=== PATIENT | male | born 1965 | race Two or more races ===

== ENCOUNTER → 2018-11-17 | Outpatient (CLI) | payer OTHER ==
--- NOTE | 2018-11-17 11:18 | US ---
EXAMINATION TYPE: US abdomen complete DATE OF EXAM: 11/17/2018 COMPARISON: NONE CLINICAL HISTORY: R94.5 Abnormal Liver results E66.01 Morbid obesity per order; HT 5'1", WT 183lbs. EXAM MEASUREMENTS: Liver Length: 16.3 cm Gallbladder Wall: 0.1 cm CBD: 0.7 cm Spleen: 10.4 cm Right Kidney: 9.1 x 5.6 x 4.9 cm Left Kidney: 11.1 x 6.5 x 6.9 cm Pancreas: hyperechoic and limitedly seen due to overlying bowel gas Liver: fatty liver as is hyperechoic to right renal cortex, is attenuated posteriorly and vessels wi thin liver are poorly seen Gallbladder: wnl Evidence for sonographic Dow's sign: no CBD: abnormal as greater than 0.6cm Spleen: wnl Right Kidney: No hydronephrosis or masses seen Left Kidney: hyperechoic round, solid mass noted mid lower pole and size = 0.9 x 0.6 x 0.6cm, and ma y be lobular mass extension to renal sinus vs. other solid mass (angiomyolipoma vs. other) Upper IVC: wnl Abd Aorta: wnl IMPRESSION: 1. Solid left renal lesion. CT correlation recommended. 2. Hepatic steatosis versus diffuse hepatocellular disease.
== END | disposition home or self-care (01) ==
LOC: RADUSWWP 10:06
PROVIDERS: ATTEND Family Medicine
DX: N28.9 Disorder of kidney and ureter, unspecified (principal); R94.5 Abnormal results of liver function studies; E66.01 Morbid (severe) obesity due to excess calories
CPT/HCPCS: 76700

== ENCOUNTER → 2018-12-14 | Outpatient (CLI) | payer OTHER ==
[2018-12-14 14:15] LABS: Blood Urea Nitrogen 17 mg/dL (9-20)
--- NOTE | 2018-12-14 15:39 | CT ---
EXAMINATION TYPE: CT abdomen pelvis w con DATE OF EXAM: 12/14/2018 COMPARISON: Ultrasound 11/17/2018 HISTORY: Abnormal ultrasound. CT DLP: 1482 mGycm CONTRAST: CT scan of the abdomen and pelvis is performed with Oral Contrast and with IV Contrast, patient injec fran with 100ml mL of Isovue 300. FINDINGS: LUNG BASES-: No visible nodule. No infiltrate. LIVER/GB: No calcified gallstones. There is diffuse fatty hepatic infiltration. No space occupying hepatic lesion. Biliary tree is of normal caliber. PANCREAS: No inflammation. No distinct mass. SPLEEN: No splenic enlargement. No lesion seen. ADRENALS: No nodule. No thickening. KIDNEYS/BLADDER: No hydronephrosis. No nephrolithiasis. No distinct renal mass. Urinary bladder g rossly unremarkable. BOWEL: Normal appendix. Normal bowel caliber. No inflammation. GENITAL ORGANS: No gross abnormality. LYMPH NODES: No greater than 1cm abdominal or pelvic lymph nodes are appreciated. AORTA: No significant abnormality. OSSEOUS STRUCTURES: No significant abnormality is seen. OTHER: No significant additional abnormality is seen. IMPRESSION: 1. Fatty liver. 2. No evidence for left hepatic lesion.
== END | disposition home or self-care (01) ==
LOC: RADCTMAIN 13:26
PROVIDERS: ATTEND Family Medicine
DX: K76.0 Fatty (change of) liver, not elsewhere classified (principal)
CPT/HCPCS: 82565; 84520; 74177; 36415; Q9967

== ENCOUNTER → 2019-06-19 | Outpatient (CLI) | payer OTHER ==
--- NOTE | 2019-06-19 09:26 | XR ---
EXAMINATION TYPE: XR Hip Complete LT DATE OF EXAM: 06/19/2019 CLINICAL HISTORY: Left hip pain for 3 weeks. TECHNIQUE: AP and frogleg views of the left hip are obtained. COMPARISON: CT abdomen and pelvis December 14, 2018. FINDINGS: There is no acute fracture/dislocation evident in the left hip. Ilqn-zz-ebtfzdhe axial gill nt space loss with subchondral cystic change and mild head neck collar spurring is redemonstrated. T he overlying soft tissue appears unremarkable. IMPRESSION: As above .
== END | disposition home or self-care (01) ==
LOC: RADXRYALE 08:51
PROVIDERS: ATTEND Physician Assistant Medical
DX: M25.852 Other specified joint disorders, left hip (principal); M79.89 Other specified soft tissue disorders
CPT/HCPCS: 73502

== ENCOUNTER 2019-08-26 10:52 | Emergency (ER) | payer OTHER ==
[2019-08-26 11:09] VITALS: BP 110/71; PULSE 91; RESP 16; TEMP 98.4
--- NOTE | 2019-08-26 11:50 | ED ---
Lower Extremity Injury HPI - General Chief Complaint: Extremity Injury, Lower Stated Complaint: Toe Injury Time Seen by Provider: 08/26/19 11:23 Source: family, RN notes reviewed Mode of arrival: ambulatory Limitations: no limitations - History of Present Illness Initial Comments: 54-year-old male presents emergency Department with chief complaint injury to left foot pain. Patient states that he hadn't injury on Tuesday in which he states he slipped on some ice on his deck and injured his first toe on the left foot. Patient states that he was fine Tuesday but worsened Tuesday until today. He states there is swelling and pain despite went to the first digit. He states it's red. He has no history gout denies any other injuries at this time. - Related Data Home Medications Medication Instructions Recorded Confirmed Lisinopril [Zestril] 1 tab PO DAILY 08/27/16 08/27/16 Lovastatin [Mevacor] 1 tab PO HS 08/27/16 08/27/16 [place]-3 Fatty Acids/Fish Oil [Fish 2 tab PO DAILY 08/27/16 08/27/16 Oil 1,000 mg Softgel] metFORMIN HCL [Glucophage] 2 tab PO BID 08/27/16 08/27/16 Previous Rx's Medication Instructions Recorded Indomethacin [Indocin] 50 mg PO TID #30 capsule 08/26/19 Allergies Allergy/AdvReac Type Severity Reaction Status Date / Time atorvastatin AdvReac Abdominal Verified 08/26/19 11:09 Pain Review of Systems ROS Statement: Those systems with pertinent positive or pertinent negative responses have been documented in the HPI. ROS Other: All systems not noted in ROS Statement are negative. Past Medical History Past Medical History: Diabetes Mellitus, Hyperlipidemia, Hypertension Additional Past Medical History / Comment(s): VIT D DEFICENCY History of Any Multi-Drug Resistant Organisms: None Reported Past Anesthesia/Blood Transfusion Reactions: No Reported Reaction Past Psychological History: No Psychological Hx Reported Smoking Status: Light tobacco smoker Past Alcohol Use History: Occasional Past Drug Use History: None Reported General Exam Limitations: no limitations General appearance: alert, in no apparent distress Head exam: Present: atraumatic, normocephalic, normal inspection Eye exam: Present: normal appearance, PERRL, EOMI. Absent: scleral icterus, conjunctival injection, periorbital swelling Respiratory exam: Present: normal lung sounds bilaterally. Absent: respiratory distress, wheezes, rales, rhonchi, stridor Cardiovascular Exam: Present: regular rate, normal rhythm, normal heart sounds. Absent: systolic murmur, diastolic murmur, rubs, gallop, clicks Extremities exam: Present: other (Left foot there is swelling, erythema and tenderness to the first MTP region there is no obvious deformity neurovascular intact there is pain with range of motion and light touch. Ankle full range of motion nontender) Neurological exam: Present: alert, oriented X3 Skin exam: Present: warm, dry, intact, normal color. Absent: rash Course Vital Signs 08/26/19 11:08 Temperature 98.4 F Pulse Rate 91 Respiratory 16 Rate Blood Pressure 110/71 O2 Sat by Pulse 97 Oximetry Medical Decision Making - Medical Decision Making X-rays negative for acute fracture. Patient does have some arthritic changes. Patient symptoms are also consistent with gout. Patient to clindamycin and start Tegretol according return parameters were discussed. Disposition Clinical Impression: Gout, Contusion of left foot Disposition: HOME SELF-CARE Condition: Stable Instructions (If sedation given, give patient instructions): Gout (ED) Additional Instructions: Please return to the Emergency Department if symptoms worsen or any other concerns. Prescriptions: Indomethacin [Indocin] 50 mg PO TID #30 capsule Is patient prescribed a controlled substance at d/c from ED?: No Referrals: Yoshi Boswell DO [Primary Care Provider] - 1-2 days Time of Disposition: 12:07
--- NOTE | 2019-08-26 11:52 | XR ---
EXAMINATION TYPE: XR foot complete LT , 3 VIEWS DATE OF EXAM ORDERED: 08/26/2019 HISTORY: pain 1st digit. COMPARISON: None. FINDINGS: There is minimal degenerative change in the left first MTP joint. No fracture or dislocati on is seen. Note is made of a small Achilles spur seen arising from the calcaneus. IMPRESSION: 1. NO ACUTE OSSEOUS LESION. 2. MILD DEGENERATIVE CHANGE, LEFT FIRST MTP JOINT. 3. SMALL ACHILLES SPUR.
[2019-08-26] MEDS ORDERED: ACET/COD 300 MG/30 MG STARTER PACK 6 TAB BTL PO STA (12:07)
== END 2019-08-26 12:39 | disposition home or self-care (01) ==
LOC: EC 10:52
DX: S90.32XA Contusion of left foot, initial encounter (principal); M10.9 Gout, unspecified; M19.072 Primary osteoarthritis, left ankle and foot; E11.9 Type 2 diabetes mellitus without complications; E78.5 Hyperlipidemia, unspecified; I10 Essential (primary) hypertension; F17.200 Nicotine dependence, unspecified, uncomplicated; Z88.8 Allergy status to other drugs, medicaments and biological substances; Z79.84 Long term (current) use of oral hypoglycemic drugs; Z79.899 Other long term (current) drug therapy; W00.0XXA Fall on same level due to ice and snow, initial encounter
CPT/HCPCS: 99283

== ENCOUNTER 2020-11-28 07:29 | Day surgery (SDC) | payer OTHER ==
[2020-11-26 17:46] VITALS: BMI 37.2
[~2020-11-28 07:29] MED LIST: LACTATED RINGERS 1,000 ML IV SCH
[2020-11-28 08:03] VITALS: RESP 16; TEMP 97.3
[2020-11-28 08:04] LABS: Glucose,Whole Blood 161 mg/dL (75-99)
[2020-11-28] MEDS ORDERED: LIDOCAINE 1% (10MG/ML) FOR IV START INTRADERMA ONE (08:04)
[2020-11-28] MEDS ORDERED: PROPOFOL 10 MG/ML 20 ML VIAL IV ONE (08:30)
[2020-11-28] MEDS ORDERED: LIDOCAINE 1% INJ 10MG/ML (20 ML MDV) ONE (08:30)
--- NOTE | 2020-11-28 08:48 | P.PCN ---
Date of Procedure: 11/28/20 Procedure(s) Performed: BRIEF HISTORY: Patient is a 51-year-old pleasant male scheduled for an elective colonoscopy as a part of evaluation of prior history of colon polyps. Last colonoscopy was 5 years ago. PROCEDURE PERFORMED: Colonoscopy with biopsy. PREOPERATIVE DIAGNOSIS: History of colon polyps. IV sedation per Anesthesia. PROCEDURE: After informed consent was obtained, the patient, was brought into the endoscopy unit. IV sedation was administered by Anesthesia under continuous monitoring. Digital rectal examination was normal. Initially the Olympus CF-160 flexible video colonoscope was then inserted in the rectum, gradually advanced into the cecum without any difficulty. Careful examination was performed as the scope was gradually being withdrawn. Ileocecal valve and the appendiceal orifice were visualized and appeared normal. Prep was excellent. Mucosa of the cecum, appeared normal. In the ascending colon there was a 5 mm sessile polyp removed by cold biopsy. Rest of the ascending colon, transverse colon, descending colon, sigmoid colon, and rectum appeared normal. In the distal rectum there was a 2 mm sessile polyp removed by cold biopsy. Retroflexion was performed in the rectum and no lesions were seen. The patient tolerated the procedure well. IMPRESSION: 5 mm ascending colon polyp status post removal by cold biopsy 2 mm rectal polyp status post cold biopsy Rest of the colon appeared normal RECOMMENDATIONS: Findings of this examination were discussed with the patient as well as his family. He was advised to follow with the biopsy. If the biopsy shows an adenoma he can have a repeat colonoscopy in 5 years.
[2020-11-28 09:15] VITALS: BP 97/65; PULSE 84
== END 2020-11-28 10:36 | disposition home or self-care (01) ==
LOC: ORWHC2ENDO 07:29
PROVIDERS: ATTEND Internal Medicine Gastroenterology
DX: D12.2 Benign neoplasm of ascending colon (principal); K62.1 Rectal polyp; E11.9 Type 2 diabetes mellitus without complications; I10 Essential (primary) hypertension; Z86.010 Personal history of colon polyps; E78.5 Hyperlipidemia, unspecified; F17.200 Nicotine dependence, unspecified, uncomplicated; Z79.899 Other long term (current) drug therapy; Z79.82 Long term (current) use of aspirin; Z79.84 Long term (current) use of oral hypoglycemic drugs; Z88.8 Allergy status to other drugs, medicaments and biological substances; Z79.1 Long term (current) use of non-steroidal anti-inflammatories (NSAID)
CPT/HCPCS: 88305; 45380; J2001; J2704

== ENCOUNTER 2021-01-28 16:03 | Inpatient (IN) | payer OTHER ==
[2021-01-28 16:38] LABS: Basophils % (A) 0 %; Eosinophils % (A) 0 %; HCT 37.3 % (39.0-53.0); HGB 13.1 gm/dL (13.0-17.5); Lymphocytes # (A) 0.5 k/uL (1.0-4.8); Lymphocytes % (A) 8 %; MCH 32.3 pg (25.0-35.0); MCHC 35.2 g/dL (31.0-37.0); MCV 91.7 fL (80.0-100.0); Mean Platelet Volume 8.3; Monocytes # (A) 0.3 k/uL (0-1.0); Monocytes % (A) 4 %; Neutrophils # (A) 5.8 k/uL (1.3-7.7); Neutrophils % (A) 87 %; Platelet Count 238 k/uL (150-450); RBC 4.06 m/uL (4.30-5.90); RDW 12.6 % (11.5-15.5); WBC 6.7 k/uL (3.8-10.6)
[2021-01-28 16:43] LABS: Albumin 3.9 g/dL (3.5-5.0); Calcium 8.6 mg/dL (8.4-10.2); Total Bilirubin 1.3 mg/dL (0.2-1.3)
[2021-01-28] MEDS ORDERED: ACETAMINOPHEN TAB 500 MG TAB PO STA (16:44)
[2021-01-28] MEDS ORDERED: PANTOPRAZOLE 40 MG/10 ML VIAL IVP STA (16:45)
[2021-01-28] MEDS ORDERED: ONDANSETRON 4 MG/2 ML VIAL IVP STA (16:45)
[2021-01-28] MEDS ORDERED: SODIUM CHLORIDE 0.9% 500 ML 500 ML IV STA (16:45)
[2021-01-28 16:49] LABS: INR 0.9 (<1.2); Prothrombin Time 9.9 sec (9.0-12.0)
[2021-01-28 17:00] LABS: Partial Thromboplastin Time 20.2 sec (22.0-30.0)
--- NOTE | 2021-01-28 17:34 | XR ---
EXAMINATION TYPE: XR chest 1V portable DATE OF EXAM: 01/28/2021 COMPARISON: NONE HISTORY: Shortness of breath and Covid positive. TECHNIQUE: Single frontal view of the chest is obtained. FINDINGS: There are bilateral diffuse patchy airspace opacities. No pleural effusion, or pneumothora x seen. The cardiac silhouette size is within normal limits. The osseous structures are intact. IMPRESSION: Bilateral infiltrates.
--- NOTE | 2021-01-28 18:16 | ED ---
General Adult HPI - General Source: EMS Mode of arrival: EMS Limitations: no limitations <Karina Viera - Last Filed: 01/29/21 18:19> <Radha Carreon - Last Filed: 01/30/21 11:59> - General Chief complaint: Nausea/Vomiting/Diarrhea Stated complaint: Covid+/SOB/Abd pain Time Seen by Provider: 01/28/21 16:25 - History of Present Illness Initial comments: Patient is a 55-year-old male with history of diabetes, presenting to the emergency department via EMS with complaints of nausea, vomiting and symptoms of acid reflux over the past 2 days. Patient states he had an appointment to see his doctor a few days ago concerning the acid reflex however his doctor's office wanted a Covid test first. That tested come back +2 days ago. Patient states over the last 2 days he has been short of breath, mild cough but increasing nausea and vomiting. He states he has some epigastric discomfort. When EMS arrived at his home he was 75% on room air, 3 L or O2 was administered and he quickly improved to 94%. She did receive some fluids, Zofran and the EMS prior to arrival. Patient states she has not been checking his glucose levels secondary to not eating very much. He does admit to trying to drink some water. He denies history of asthma or COPD, he is an occasional smoker. He denies having any fevers or chills, no chest pains. He has no further complaints at this time. Upon arrival to the ER, he is febrile to 100.6, 80% on room air, improved to 95% on 3 L. (Karina Viera) - Related Data Home Medications Medication Instructions Recorded Confirmed Lovastatin [Mevacor] 40 mg PO DAILY 08/27/16 01/28/21 lisinopriL [Zestril] 5 mg PO DAILY 08/27/16 01/28/21 Pioglitazone [Actos] 45 mg PO DAILY 11/28/20 01/28/21 glipiZIDE [Glucotrol] 10 mg PO DAILY 11/28/20 01/28/21 metFORMIN HCL 1,000 mg PO BID 01/28/21 01/28/21 Allergies Allergy/AdvReac Type Severity Reaction Status Date / Time atorvastatin AdvReac Abdominal Verified 01/28/21 18:07 Pain/heartburn Review of Systems ROS Other: All systems not noted in ROS Statement are negative. <Karina Viera - Last Filed: 01/29/21 18:19> ROS Other: All systems not noted in ROS Statement are negative. <Radha Carreon - Last Filed: 01/30/21 11:59> ROS Statement: Those systems with pertinent positive or pertinent negative responses have been documented in the HPI. Past Medical History Past Medical History: Diabetes Mellitus, Hyperlipidemia, Hypertension Additional Past Medical History / Comment(s): hx of colon polyps, History of Any Multi-Drug Resistant Organisms: None Reported Additional Past Surgical History / Comment(s): colonoscopy, Past Anesthesia/Blood Transfusion Reactions: No Reported Reaction Past Psychological History: No Psychological Hx Reported Smoking Status: Never smoker Past Alcohol Use History: None Reported Past Drug Use History: Marijuana <Karina Viera - Last Filed: 01/29/21 18:19> General Exam Limitations: no limitations <Karina Viera - Last Filed: 01/29/21 18:19> - General Exam Comments Initial Comments: GENERAL: Patient is well-developed and well-nourished. Patient is nontoxic and in no acute distress. HEAD: Atraumatic, normocephalic. EYES: Pupils equal round and reactive to light, extraocular movements intact, sclera anicteric, conjunctiva are normal. Eyelids were unremarkable. ENT: TMs normal, nares patent, oropharynx clear without exudates. Moist mucous membranes. NECK: Normal range of motion, supple without lymphadenopathy or JVD. LUNGS: Unlabored respirations. Breath sounds clear to auscultation bilaterally and equal. No wheezes rales or rhonchi. HEART: Regular rate and rhythm without murmurs, rubs or gallops. ABDOMEN: Soft, mildly tender epigastric area, no other areas of abdominal pain nor moactive bowel sounds. No guarding, no rebound. No masses appreciated. : Deferred MUSCULOSKELETAL: Normal extremities with adequate strength and normal range of motion, no pitting or edema. No clubbing or cyanosis. NEUROLOGICAL: Patient is alert and oriented x 3. Motor and sensory are also intact. Cranial nerves II through XII grossly intact. Symmetrical smile. Normal speech, normal gait. PSYCH: Normal mood, normal affect. SKIN: Warm, Dry, normal turgor, no rashes or lesions noted. (Karina Viera) Course Vital Signs 01/28/21 01/28/21 01/28/21 16:09 16:23 17:06 Temperature 100.6 F H Pulse Rate 91 93 Pulse Rate [ Pulse Oximetery ] Respiratory 22 20 Rate Blood Pressure 120/69 114/70 Blood Pressure [Left Arm Supine] O2 Sat by Pulse 80 L 95 95 Oximetry 01/28/21 01/28/21 01/28/21 18:17 21:42 23:11 Temperature 98.9 F 97.0 F L Pulse Rate 87 60 Pulse Rate [ Pulse Oximetery ] Respiratory 18 18 Rate Blood Pressure 105/67 109/74 Blood Pressure [Left Arm Supine] O2 Sat by Pulse 94 L 95 96 Oximetry 01/29/21 02:00 Temperature 97.4 F L Pulse Rate Pulse Rate [ 65 Pulse Oximetery ] Respiratory 20 Rate Blood Pressure Blood Pressure 134/84 [Left Arm Supine] O2 Sat by Pulse 93 L Oximetry EKG Findings - EKG Comments: EKG Findings:: Normal sinus rhythm, normal ECG, no signs of acute ischemia. Ventricular rate 92, WV interval 156, QT 336. <Karina Viera - Last Filed: 01/29/21 18:19> Medical Decision Making - Lab Data Result diagrams: 01/29/21 05:25 01/28/21 19:17 <Karina Viera - Last Filed: 01/29/21 18:19> - Lab Data Result diagrams: 01/29/21 05:25 01/30/21 09:08 <Radha Carreon - Last Filed: 01/30/21 11:59> - Medical Decision Making Patient is a 55-year-old male with history of diabetes, presenting from the EMS secondary to nausea and vomiting as well as hypoxia. Tested positive for Covid 2 days ago. He was stating at 75% on room air, he has been stable on 3 L at 95%. He did arrive slightly febrile 100.9. EKG shows no acute process. Labs show a white count of 6.7, sodium is low at 130, glucose 338. He did not take his diabetes medication today. CRP is elevated at 260, LDH is 1700. Chest x- ray shows bilateral infiltrates. Patient will be admitted for covert pneumonia, hypoxia. Patient accepted by Dr. Valles with pulmonary on consult. Patient is in agreement with this plan of care. Case discussed with Dr. Carreon. (Karina Viera) I was available for consultation in the emergency department. The history and physical exam were done by the midlevel provider. I was consulted for this patients care. I reviewed the case with the midlevel provider and based on their presentation of the patient, I agree with the assessment, medical decision making and plan of care as documented. Chart was dictated using [employer]more dictation software. Attempts were made to correct any dictation errors however some typographical errors may persist. Patient was seen during a [facility] of emergency due to the Covid-19 pandemic. (Radha Carreon) - Lab Data Lab Results 01/28/21 01/28/21 01/28/21 Range/Units 16:22 16:22 16:22 WBC 6.7 (3.8-10.6) k/uL RBC 4.06 L (4.30-5.90) m/uL Hgb 13.1 (13.0-17.5) gm/dL Hct 37.3 L (39.0-53.0) % MCV 91.7 (80.0-100.0) fL MCH 32.3 (25.0-35.0) pg MCHC 35.2 (31.0-37.0) g/dL RDW 12.6 (11.5-15.5) % Plt Count 238 (150-450) k/uL MPV 8.3 Neutrophils % 87 % Lymphocytes % 8 % Monocytes % 4 % Eosinophils % 0 % Basophils % 0 % Neutrophils # 5.8 (1.3-7.7) k/uL Lymphocytes # 0.5 L (1.0-4.8) k/uL Monocytes # 0.3 (0-1.0) k/uL Eosinophils # 0.0 (0-0.7) k/uL Basophils # 0.0 (0-0.2) k/uL PT 9.9 (9.0-12.0) sec INR 0.9 (<1.2) APTT 20.2 L (22.0-30.0) sec D-Dimer (<0.60) mg/L FEU Sodium 130 L (137-145) mmol/L Potassium 5.0 (3.5-5.1) mmol/L Chloride 97 L (98-107) mmol/L Carbon Dioxide 20 L (22-30) mmol/L Anion Gap 13 mmol/L BUN 33 H (9-20) mg/dL Creatinine 1.11 (0.66-1.25) mg/dL Est GFR (CKD-EPI)AfAm 87 (>60 ml/min/1.73 sqM) Est GFR (CKD-EPI)NonAf 75 (>60 ml/min/1.73 sqM) Glucose 338 H (74-99) mg/dL Plasma Lactic Acid Rudy (0.7-2.0) mmol/L Calcium 8.6 (8.4-10.2) mg/dL Magnesium (1.6-2.3) mg/dL Total Bilirubin 1.3 (0.2-1.3) mg/dL AST 118 H (17-59) U/L ALT 66 H (4-49) U/L Alkaline Phosphatase 105 (38-126) U/L Lactate Dehydrogenase (313-618) U/L C-Reactive Protein (<10.0) mg/L Total Protein 7.0 (6.3-8.2) g/dL Albumin 3.9 (3.5-5.0) g/dL Lipase (23-300) U/L Blood Type Confirm 01/28/21 01/28/21 01/28/21 Range/Units 16:22 16:22 16:49 WBC (3.8-10.6) k/uL RBC (4.30-5.90) m/uL Hgb (13.0-17.5) gm/dL Hct (39.0-53.0) % MCV (80.0-100.0) fL MCH (25.0-35.0) pg MCHC (31.0-37.0) g/dL RDW (11.5-15.5) % Plt Count (150-450) k/uL MPV Neutrophils % % Lymphocytes % % Monocytes % % Eosinophils % % Basophils % % Neutrophils # (1.3-7.7) k/uL Lymphocytes # (1.0-4.8) k/uL Monocytes # (0-1.0) k/uL Eosinophils # (0-0.7) k/uL Basophils # (0-0.2) k/uL PT (9.0-12.0) sec INR (<1.2) APTT (22.0-30.0) sec D-Dimer 0.95 H (<0.60) mg/L FEU Sodium (137-145) mmol/L Potassium (3.5-5.1) mmol/L Chloride (98-107) mmol/L Carbon Dioxide (22-30) mmol/L Anion Gap mmol/L BUN (9-20) mg/dL Creatinine (0.66-1.25) mg/dL Est GFR (CKD-EPI)AfAm (>60 ml/min/1.73 sqM) Est GFR (CKD-EPI)NonAf (>60 ml/min/1.73 sqM) Glucose (74-99) mg/dL Plasma Lactic Acid Rudy 1.9 (0.7-2.0) mmol/L Calcium (8.4-10.2) mg/dL Magnesium (1.6-2.3) mg/dL Total Bilirubin (0.2-1.3) mg/dL AST (17-59) U/L ALT (4-49) U/L Alkaline Phosphatase (38-126) U/L Lactate Dehydrogenase (313-618) U/L C-Reactive Protein (<10.0) mg/L Total Protein (6.3-8.2) g/dL Albumin (3.5-5.0) g/dL Lipase (23-300) U/L Blood Type Confirm O Positive 01/28/21 Range/Units 16:49 WBC (3.8-10.6) k/uL RBC (4.30-5.90) m/uL Hgb (13.0-17.5) gm/dL Hct (39.0-53.0) % MCV (80.0-100.0) fL MCH (25.0-35.0) pg MCHC (31.0-37.0) g/dL RDW (11.5-15.5) % Plt Count (150-450) k/uL MPV Neutrophils % % Lymphocytes % % Monocytes % % Eosinophils % % Basophils % % Neutrophils # (1.3-7.7) k/uL Lymphocytes # (1.0-4.8) k/uL Monocytes # (0-1.0) k/uL Eosinophils # (0-0.7) k/uL Basophils # (0-0.2) k/uL PT (9.0-12.0) sec INR (<1.2) APTT (22.0-30.0) sec D-Dimer (<0.60) mg/L FEU Sodium (137-145) mmol/L Potassium (3.5-5.1) mmol/L Chloride (98-107) mmol/L Carbon Dioxide (22-30) mmol/L Anion Gap mmol/L BUN (9-20) mg/dL Creatinine (0.66-1.25) mg/dL Est GFR (CKD-EPI)AfAm (>60 ml/min/1.73 sqM) Est GFR (CKD-EPI)NonAf (>60 ml/min/1.73 sqM) Glucose (74-99) mg/dL Plasma Lactic Acid Rudy (0.7-2.0) mmol/L Calcium (8.4-10.2) mg/dL Magnesium 2.2 (1.6-2.3) mg/dL Total Bilirubin (0.2-1.3) mg/dL AST (17-59) U/L ALT (4-49) U/L Alkaline Phosphatase (38-126) U/L Lactate Dehydrogenase 1776 H (313-618) U/L C-Reactive Protein 260.1 H (<10.0) mg/L Total Protein (6.3-8.2) g/dL Albumin (3.5-5.0) g/dL Lipase 235 (23-300) U/L Blood Type Confirm Critical Care Time Critical Care Time: Yes Total Critical Care Time: 35 (Patient arrived stating at 74% on room air, 3 L O2 was quickly applied, satting a normal 94%. Covid pneumonia, patient was admitted.) <Karina Viera - Last Filed: 01/29/21 18:19> Disposition Decision Date: 01/28/21 Decision Time: 18:27 <Karina Viera - Last Filed: 01/29/21 18:19> <Radha Carreon - Last Filed: 01/30/21 11:59> Clinical Impression: Pneumonia due to COVID-19 virus, Hypoxia Disposition: ADMITTED IP TO THIS HOSP Condition: Stable
[2021-01-28] MEDS ORDERED: NALOXONE 0.4 MG/ML 1 ML VIAL IV PRN (18:24)
[2021-01-28] MEDS ORDERED: ONDANSETRON 4 MG/2 ML VIAL IVP PRN (18:24)
[2021-01-28] MEDS ORDERED: glipiZIDE 10 MG TAB PO SCH (18:30)
[2021-01-28 18:35] LABS: Magnesium 2.2 mg/dL (1.6-2.3)
[2021-01-28] MEDS ORDERED: ALPRAZolam 0.25 MG TAB PO PRN (18:42)
[2021-01-28 18:53] LABS: C Reactive Protein 260.1 mg/L (<10.0)
[2021-01-28] MEDS: SODIUM CHLORIDE 0.9% 1,000 ML IV SCH (19:06)
[2021-01-28] MEDS: DEXAMETHASONE SOD PHOSPHATE 10 MG/ML 1 ML VIAL IV SCH (19:06)
[2021-01-28 19:11] LABS: Glucose,Whole Blood 315 mg/dL (75-99)
[2021-01-28 20:04] LABS: Albumin 3.8 g/dL (3.5-5.0); Calcium 8.4 mg/dL (8.4-10.2); Potassium 5.2 mmol/L (3.5-5.1); Total Bilirubin 1.1 mg/dL (0.2-1.3); Total Protein 6.8 g/dL (6.3-8.2)
--- NOTE | 2021-01-28 20:27 | HP ---
HISTORY AND PHYSICAL DATE OF SERVICE: 01/28/2021 CHIEF COMPLAINTS: Shortness of breath, cough, nausea, vomiting, diarrhea. HISTORY OF PRESENT ILLNESS: This 55-year-old gentleman with a past medical history of diabetes, hypertension, hyperlipidemia, being followed by Dr. Yoshi Boswell in the outpatient setting, was not feeling well over the past 2 days. The patient had vomiting, nausea, acid reflux, and subsequently COVID test was done at the doctor's office. Because of increased symptoms, the patient came to [facility] and was admitted for further evaluation and treatment. The patient also had mild cough and shortness of breath nausea, vomiting. The pulse ox found to be 70% on room air and the patient had bilateral pneumonia. COVID-19 was positive and the patient was admitted for further evaluation and treatment. There is no history of any fever, rigor or chills. No history of headache, loss of consciousness, seizures. PAST MEDICAL HISTORY: Diabetes mellitus, hypertension, hyperlipidemia. HOME MEDICATIONS: Metformin, Zestril, Glucotrol, Actos, Mevacor. ALLERGIES: ATORVASTATIN. FAMILY HISTORY: No history of heart disease or strokes in the family. SOCIAL HISTORY: tobacco smoker. REVIEW OF SYSTEMS: ENT: No diminished hearing. No diminished vision. CARDIOVASCULAR SYSTEM: As mentioned earlier. RESPIRATORY SYSTEM: As mentioned earlier. GI: As mentioned earlier. : No dysuria or retention. NERVOUS SYSTEM: No numbness, weakness. ALLERGY/IMMUNOLOGY: No asthma, hayfever. MUSCULOSKELETAL: As mentioned earlier. HEMATOLOGY/ONCOLOGY: No history of anemia. ENDOCRINE: As mentioned earlier. CONSTITUTIONAL: As mentioned earlier. DERMATOLOGY: Negative. RHEUMATOLOGY: Negative. PSYCHIATRY: Negative. PHYSICAL EXAMINATION: Patient alert and oriented x3. Pulse is 87, blood pressure 150/69, respiration 18, temperature 98.9, pulse ox 94% on 3 L. It was 80% on room air on admission. HEENT: Conjunctivae normal. NECK: No jugular venous distention. CARDIOVASCULAR SYSTEM: S1, S2 muffled. RESPIRATORY SYSTEM: Breath sounds diminished at the bases. A few scattered rhonchi. ABDOMEN: Soft, obese, non-tender. LEGS: No edema. No swelling. NERVOUS SYSTEM: No focal deficit. LYMPHATICS: No lymph node palpable in neck, axillae or groin. SKIN: No ulcer, rash, bleeding. JOINTS: No active deforming arthropathy. LABS: WBC 6.7, hemoglobin 13.1. Sodium 131. Other labs are noted. ASSESSMENT: 1. Acute COVID-19 infection with COVID-19 bilateral interstitial pneumonia with acute hypoxic respiratory failure. 2. Hyponatremia. 3. Diarrhea, possibly secondary COVID-19. 4. Diabetes mellitus, type 2, uncontrolled with hyperglycemia. 5. Elevated AST and ALT. 6. History of hypertension. 7. History of hyperlipidemia. 8. History of colonic polyps. 9. Obesity with body mass index of 36.7. 10.FULL CODE. RECOMMENDATIONS AND DISCUSSION: In this 55-year-old gentleman who presented with multiple complex medical issues, we will monitor the patient closely, continue the current medications, continue symptomatic treatment. I recommend resuming the home medications. Monitor blood sugars closely. Initiate dexamethasone, Lovenox. I would also recommend a D-dimer, and if it is positive CT angio chest also to rule out the possibility of pulmonary embolism. Otherwise, if the sugars are persistently more than 350, IV insulin drip may be considered for better diabetic control. We will follow the patient closely. Prognosis is guarded. A copy of this dictation is being forwarded to Dr. Boswell, who is the primary physician. MMODL / JULIN: [id number] / MTDD
[2021-01-28] MEDS: CHOLECALCIFEROL 25 MCG (1000 IU) TABLET PO SCH (23:14)
[2021-01-28] MEDS: metFORMIN 500 MG TAB PO SCH (23:15)
[2021-01-28 23:23] LABS: Glucose,Whole Blood 335 mg/dL (75-99)
[2021-01-28] MEDS: INSULIN ASPART (NovoLOG) 100 UNIT/ML VIAL SQ SCH (23:34)
[2021-01-29] MEDS: ACETAMINOPHEN TAB 325 MG TAB PO PRN (02:45)
[2021-01-29 07:31] LABS: Glucose,Whole Blood 286 mg/dL (75-99)
[2021-01-29] MEDS: PIOGLITAZONE 45 MG TAB PO SCH (07:53)
[2021-01-29] MEDS: PANTOPRAZOLE 40 MG/10 ML VIAL IVP SCH (07:53)
[2021-01-29] MEDS: ENOXAPARIN 40 MG/0.4 ML SYRINGE SQ SCH (07:53)
[2021-01-29] MEDS: INSULIN ASPART (NovoLOG) 100 UNIT/ML VIAL SQ SCH ×4 (07:53→20:10)
[2021-01-29] MEDS: CHOLECALCIFEROL 25 MCG (1000 IU) TABLET PO SCH (07:54)
[2021-01-29] MEDS: ASCORBIC ACID 500 MG TAB PO SCH (07:54)
[2021-01-29] MEDS: DEXAMETHASONE SOD PHOSPHATE 10 MG/ML 1 ML VIAL IV SCH (07:54)
[2021-01-29] MEDS: metFORMIN 500 MG TAB PO SCH ×2 (07:54→20:10)
[2021-01-29] MEDS: glipiZIDE 10 MG TAB PO SCH ×2 (09:29→18:47)
[2021-01-29] MEDS: LINAGLIPTIN 5 MG TABLET PO SCH (09:29)
[2021-01-29] MEDS: SODIUM CHLORIDE 0.9% 1,000 ML IV SCH (09:29)
[2021-01-29 09:37] LABS: HCT 38.8 % (39.6-50.0); HGB 12.8 g/dL (13.0-17.0); MCH 31.4 pg (27.0-32.0); MCV 95.1 fL (80.0-97.0); Mean Platelet Volume 11.2 fL (9.5-12.2); Platelet Count 262 X 10*3/uL (140-440); RBC 4.08 X 10*6/uL (4.40-5.60); RDW 12.6 % (11.5-14.5); WBC 6.99 X 10*3/uL (4.50-10.00)
[2021-01-29 10:19] LABS: Basophils # (A) 0.01 X 10*3/uL (0.00-0.10); Basophils % (A) 0.1 %; Eosinophils # (A) 0 X 10*3/uL (0.04-0.35); Eosinophils % (A) 0 %; Lymphocytes # (A) 0.53 X 10*3/uL (0.90-5.00); Lymphocytes % (A) 7.6 %; Monocytes # (A) 0.22 X 10*3/uL (0.20-1.00); Monocytes % (A) 3.1 %; Neutrophils # (A) 6.19 X 10*3/uL (1.80-7.70); Neutrophils % (A) 88.6 %
--- NOTE | 2021-01-29 11:58 | P.CNPUL ---
History of Present Illness Consult date: 01/29/21 Requesting physician: Rika Valles Reason for consult: dyspnea, cough, hypoxemia, abnormal CXR/CT Chief complaint: Nausea, diarrhea, shortness of breath, cough, fever History of present illness: 55-year-old male patient with past medical history of diabetes mellitus, hypertension, hyperlipidemia, past history of smoking, which is currently in remission, presented to the emergency department on 01/28/2021 with complaints of worsening dyspnea, cough and fever. He started with symptoms of nausea, diarrhea, and acid reflux about 7 days ago. In the last couple of days he is more short of breath and coughing. Patient had a appointment with his PCP a few days ago concerning his acid reflux and had outpatient COVID test done, which came back +2 days ago. Patient presented to the emergency department for further evaluation and treatment for symptoms of worsening dyspnea, mild cough, and increasing nausea and vomiting and some epigastric discomfort. When EMS arrived at his home his pulse ox was 75% on room air, he was placed on supplemental oxygen. He received some fluids, Zofran prior to arrival. Denies any history of chronic lung disease. Chest x-ray in the emergency department shows bilateral infiltrates. Admission labs showed white blood cell count of 6.7, hemoglobin 13.1, lymphocyte count 0.5, d-dimer is 0.95, sodium is 1:30, potassium is 5.0, chloride is 97, CO2 is 20, BUN of 33, creatinine is 1.11, lactic acid was 1.9, AST is 118, ALT is 66, LDH was 1776, and CRP is 260. Lipase was 235. Patient was started on IV dexamethasone 6 program daily, prophylactic Lovenox 40 mg, continues on IV fluids, vitamins, and we will start Remdesivir and 1 unit of convalescent plasma today Review of Systems All systems: negative Constitutional: Reports malaise, Reports poor appetite, Reports weakness, Denies chills, Denies fever Eyes: denies blurred vision, denies pain Ears, nose, mouth and throat: Denies headache, Denies sore throat Cardiovascular: Denies chest pain, Denies shortness of breath Respiratory: Reports cough, Reports dyspnea Gastrointestinal: Reports dyspepsia, Reports heartburn, Reports indigestion, Reports nausea, Reports vomiting, Denies abdominal pain, Denies diarrhea Musculoskeletal: Denies myalgias Integumentary: Denies pruritus, Denies rash Neurological: Denies numbness, Denies weakness Psychiatric: Denies anxiety, Denies depression Endocrine: Denies fatigue, Denies weight change Past Medical History Past Medical History: Diabetes Mellitus, Hyperlipidemia, Hypertension Additional Past Medical History / Comment(s): hx of colon polyps, History of Any Multi-Drug Resistant Organisms: None Reported Additional Past Surgical History / Comment(s): colonoscopy, Past Anesthesia/Blood Transfusion Reactions: No Reported Reaction Past Psychological History: No Psychological Hx Reported Smoking Status: Never smoker Past Alcohol Use History: None Reported Past Drug Use History: Marijuana Additional Drug Use History / Comment(s): cbd gummies, instructed to hold 24 hrs prior Medications and Allergies Home Medications Medication Instructions Recorded Confirmed Type Lovastatin [Mevacor] 40 mg PO DAILY 08/27/16 01/28/21 History lisinopriL [Zestril] 5 mg PO DAILY 08/27/16 01/28/21 History Pioglitazone [Actos] 45 mg PO DAILY 11/28/20 01/28/21 History glipiZIDE [Glucotrol] 10 mg PO DAILY 11/28/20 01/28/21 History metFORMIN HCL 1,000 mg PO BID 01/28/21 01/28/21 History Allergies Allergy/AdvReac Type Severity Reaction Status Date / Time atorvastatin AdvReac Abdominal Verified 01/28/21 18:07 Pain/heartburn Physical Exam Vitals: Vital Signs Temp Pulse Pulse Resp BP BP Pulse Ox 01/29/21 08:00 98.0 F 74 16 102/57 92 L 01/29/21 07:15 21 01/29/21 02:56 97.4 F L 65 20 134/84 93 L 01/29/21 02:00 97.4 F L 65 20 134/84 93 L 01/28/21 23:11 97.0 F L 60 18 109/74 96 01/28/21 21:42 95 01/28/21 18:17 98.9 F 87 18 105/67 94 L 01/28/21 17:06 93 20 114/70 95 01/28/21 16:23 95 01/28/21 16:09 100.6 F H 91 22 120/69 80 L Intake and Output 01/28/21 01/29/21 01/29/21 22:59 06:59 14:59 Intake Total 1140 Balance 1140 Intake: Intake, IV Titration 900 Amount Sodium Chloride 0.9% 1, 900 000 ml @ 75 mls/hr IV . [id number] [facility] Rx#:[id number] Oral 240 Other: # Voids 2 Weight 87.997 kg 87.997 kg GENERAL EXAM: Alert, very pleasant, 55-year-old male, on 3 L of oxygen and a pulse ox of 92% comfortable in no apparent distress. HEAD: Normocephalic/atraumatic. EYES: Normal reaction of pupils, equal size. Conjunctiva pink, sclera white. NOSE: Clear with pink turbinates. THROAT: No erythema or exudates. NECK: No masses, no JVD, no thyroid enlargement, no adenopathy. CHEST: No chest wall deformity. Symmetrical expansion. LUNGS: Equal air entry with diffuse crackles CVS: Regular rate and rhythm, normal S1 and S2, no gallops, no murmurs, no rubs ABDOMEN: Soft, nontender. No hepatosplenomegaly, normal bowel sounds, no guarding or rigidity. EXTREMITIES: No clubbing, no edema, no cyanosis, 2+ pulses and upper and lower extremities. MUSCULOSKELETAL: Muscle strength and tone normal. SPINE: No scoliosis or deformity SKIN: No rashes CENTRAL NERVOUS SYSTEM: Alert and oriented -3. No focal deficits, tone is normal in all 4 extremities. PSYCHIATRIC: Alert and oriented -3. Appropriate affect. Intact judgment and i nsight. Results - Laboratory Findings CBC and BMP: 01/29/21 05:25 01/28/21 19:17 PT/INR, D-dimer PT 9.9 sec (9.0-12.0) 01/28/21 16:22 INR 0.9 (<1.2) 01/28/21 16:22 D-Dimer 0.95 mg/L FEU (<0.60) H 01/28/21 16:49 Abnormal lab findings: Abnormal Labs 01/28/21 01/28/21 01/28/21 16:22 16:22 16:22 RBC 4.06 L Hgb Hct 37.3 L Lymphocytes # 0.5 L Eosinophils # APTT 20.2 L D-Dimer Sodium 130 L Potassium Chloride 97 L Carbon Dioxide 20 L BUN 33 H Glucose 338 H POC Glucose (mg/dL) AST 118 H ALT 66 H Lactate Dehydrogenase C-Reactive Protein 01/28/21 01/28/21 01/28/21 16:49 16:49 19:08 RBC Hgb Hct Lymphocytes # Eosinophils # APTT D-Dimer 0.95 H Sodium Potassium Chloride Carbon Dioxide BUN Glucose POC Glucose (mg/dL) 315 H AST ALT Lactate Dehydrogenase 1776 H C-Reactive Protein 260.1 H 01/28/21 01/28/21 01/29/21 19:17 23:21 05:25 RBC 4.08 L Hgb 12.8 L Hct 38.8 L Lymphocytes # 0.53 L Eosinophils # 0 L APTT D-Dimer Sodium 131 L Potassium 5.2 H Chloride Carbon Dioxide 19 L BUN 34 H Glucose 301 H POC Glucose (mg/dL) 335 H AST 121 H ALT 73 H Lactate Dehydrogenase C-Reactive Protein 01/29/21 07:29 RBC Hgb Hct Lymphocytes # Eosinophils # APTT D-Dimer Sodium Potassium Chloride Carbon Dioxide BUN Glucose POC Glucose (mg/dL) 286 H AST ALT Lactate Dehydrogenase C-Reactive Protein - Diagnostic Findings Chest x-ray: report reviewed, image reviewed Additional studies: EKG reviewed Assessment and Plan Plan: Assessment: #1. Acute hypoxic respiratory failure related to acute COVID 19 pneumonia, with onset of symptoms 7 days prior to the presentation to the hospital, positive COVID test results on 01/27/2021, patient will be started on Remdesivir treatment on 01/29/2021 and will be given convalescent plasma depending on availability #2. Nausea, vomiting, gastric reflux, dehydration, fever, shortness of breath related to the above #3. Former smoker #4. Diabetes mellitus type 2 #5. Hypertension #6. Hyperlipidemia #7. Hyponatremia related to hypovolemia and dehydration #8. Increased inflammatory markers related to acute COVID 19 infection Plan: Continue Decadron, we'll start Remdesivir treatment today, 1 unit of convalescent plasma if unavailable, continue vitamins, prophylactic Lovenox, continue to follow his clinical course make recommendations accordingly, I performed a history & physical examination of the patient and discussed their management with my nurse practitioner, Mayra Lam. I reviewed the nurse practitioner's note and agree with the documented findings and plan of care. Lung sounds are positive for diminished breath sounds. The findings and the impression was discussed with the patient. I attest to the documentation by the nurse practitioner. Time with Patient: Greater than 30
[2021-01-29] MEDS ORDERED: REMDESIVIR 200 MG in SODIUM CHLORIDE 0.9% 250 ML IVPB ONE (12:00)
[2021-01-29 12:12] LABS: Glucose,Whole Blood 318 mg/dL (75-99)
[2021-01-29 17:03] LABS: Glucose,Whole Blood 294 mg/dL (75-99)
[2021-01-29 19:57] LABS: Glucose,Whole Blood 353 mg/dL (75-99)
--- NOTE | 2021-01-29 23:01 | P.PN ---
Subjective This is a pleasant 55 years old male with past medical history of diabetes mellitus, hypertension, hyperlipidemia. Presents with respiratory symptoms of dyspnea and cough and yellowish phlegm with some nausea and GI symptoms. Patient was tested positive for coronary virus, Labs showing a slightly elevated d-dimer at 0.95, increased LDH at 1776, P C- reactive protein at 260, sodium 131, glucose more than 300, liver enzymes mildly elevated. Also patient had low-grade fever yesterday at 200. Oxygen requirement in 3-4 L/m via nasal cannula also patient is tachypneic with breathing rate at 22/m. Patient is been evaluated by pulmonary team. His currently on vitamin C, vitamin D and sink. On normal saline at 75 mL/h, dexamethasone, IV 6 mg daily. Also he was started on remdesivir today. Review of systems CONSTITUTIONAL: No fever, no malaise, no fatigue. HEENT: No recent visual problems or hearing problems. Denied any sore throat. CARDIOVASCULAR: No orthopnea, PND, no palpitations, no syncope. PULMONARY: No chest wall tenderness, no hemoptysis. GASTROINTESTINAL: No diarrhea, no nausea, no vomiting, no abdominal pain. Normoactive bowel sounds. NEUROLOGICAL: No headaches, no weakness, no numbness. HEMATOLOGICAL: Denies any bleeding or petechiae. GENITOURINARY: Denies any burning micturition, frequency, or urgency. MUSCULOSKELETAL/RHEUMATOLOGICAL: Denies any joint pain, swelling, or any muscle pain. ENDOCRINE: Denies any polyuria or polydipsia. Active Medications Generic Name Dose Route Start Last Admin Trade Name Freq PRN Reason Stop Dose Admin Acetaminophen 650 mg 01/28/21 18:24 01/29/21 02:45 Acetaminophen Tab 325 Mg Tab PO 650 mg Q6HR PRN Administration Mild Pain or Fever > 100.5 Alprazolam 0.25 mg 01/28/21 18:42 Alprazolam 0.25 Mg Tab PO TID PRN Anxiety Ascorbic Acid 1,000 mg 01/29/21 09:00 01/29/21 07:54 Ascorbic Acid 500 Mg Tab PO 1,000 mg DAILY ROSE MARIE Administration Cholecalciferol 25 mcg 01/28/21 18:45 01/29/21 07:54 Cholecalciferol 25 Mcg (1000 Iu) Tablet PO 25 mcg DAILY ROSE MARIE Administration Dexamethasone Sodium Phosphate 6 mg 01/28/21 18:30 01/29/21 07:54 Dexamethasone Sod Phosphate 10 Mg/Ml 1 Ml Vial IV 6 mg DAILY ROSE MARIE Administration Enoxaparin Sodium 40 mg 01/29/21 09:00 01/29/21 07:53 Enoxaparin 40 Mg/0.4 Ml Syringe SQ 40 mg DAILY ROSE MARIE Administration Glipizide 10 mg 01/29/21 07:30 01/29/21 18:47 Glipizide 10 Mg Tab PO 10 mg AC-BID ROSE MARIE Administration Sodium Chloride 1,000 mls @ 75 mls/hr 01/28/21 18:30 01/29/21 09:29 Saline 0.9% IV 75 mls/hr .[id number] ROSE MARIE Administration Remdesivir 100 mg/ Sodium 250 mls @ 250 mls/hr 01/30/21 12:00 Chloride IVPB 02/02/21 12:59 DAILY@1200 ROSE MARIE Insulin Aspart 0 unit 01/28/21 21:00 01/29/21 20:10 Insulin Aspart (Novolog) 100 Unit/Ml Vial SQ 6 unit ACHS ROSE MARIE Administration Protocol Linagliptin 5 mg 01/29/21 09:00 01/29/21 09:29 Linagliptin 5 Mg Tablet PO 5 mg DAILY ROSE MARIE Administration Metformin HCl 1,000 mg 01/28/21 21:00 01/29/21 20:10 Metformin 500 Mg Tab PO 1,000 mg BID ROSE MARIE Administration Naloxone HCl 0.2 mg 01/28/21 18:24 Naloxone 0.4 Mg/Ml 1 Ml Vial IV Q2M PRN Opioid Reversal Ondansetron HCl 4 mg 01/28/21 18:24 01/29/21 02:45 Ondansetron 4 Mg/2 Ml Vial IVP 4 mg Q8HR PRN Administration Nausea And Vomiting Pantoprazole Sodium 40 mg 01/29/21 09:00 01/29/21 07:53 Pantoprazole 40 Mg/10 Ml Vial IVP 40 mg DAILY ROSE MARIE Administration Pioglitazone HCl 45 mg 01/29/21 09:00 01/29/21 07:53 Pioglitazone 45 Mg Tab PO 45 mg DAILY ROSE MARIE Administration Objective - Vital Signs Vital signs: Vital Signs Temp 97.8 F 01/29/21 13:15 Pulse 71 01/29/21 13:15 Resp 19 01/29/21 13:15 BP 92/53 01/29/21 13:15 Pulse Ox 90 L 01/29/21 13:15 Intake & Output 01/28/21 01/29/21 01/29/21 18:59 06:59 18:59 Intake Total 1140 Balance 1140 Weight 87.997 kg 87.997 kg Intake: Intake, IV Titration 900 Amount Sodium Chloride 0.9% 1, 900 000 ml @ 75 mls/hr IV . [id number] [facility] Rx#:[id number] Oral 240 Other: # Voids 2 - Exam GENERAL: The patient is alert and oriented x3, not in any acute distress. Well developed, well nourished. HEENT: Pupils are round and equally reacting to light. EOMI. No scleral icterus. No conjunctival pallor. Normocephalic, atraumatic. No pharyngeal erythema. No thyromegaly. CARDIOVASCULAR: S1 and S2 present. No murmurs, rubs, or gallops. PULMONARY: Chest is clear to auscultation, no wheezing or crackles. ABDOMEN: Soft, nontender, nondistended, normoactive bowel sounds. No palpable organomegaly. MUSCULOSKELETAL: No joint swelling or deformity. EXTREMITIES: No cyanosis, clubbing, or pedal edema. NEUROLOGICAL: Gross neurological examination did not reveal any focal deficits. SKIN: No rashes. no petechiae. - Labs CBC & Chem 7: 01/29/21 05:25 01/28/21 19:17 Labs: Abnormal Lab Results - Last 24 Hours (Table) 01/28/21 01/28/21 01/28/21 Range/Units 16:22 16:22 16:22 RBC 4.06 L (4.30-5.90) m/uL Hgb (13.0-17.0) g/dL Hct 37.3 L (39.0-53.0) % Lymphocytes # 0.5 L (1.0-4.8) k/uL Eosinophils # (0.04-0.35) X 10*3/uL APTT 20.2 L (22.0-30.0) sec D-Dimer (<0.60) mg/L FEU Sodium 130 L (137-145) mmol/L Potassium (3.5-5.1) mmol/L Chloride 97 L (98-107) mmol/L Carbon Dioxide 20 L (22-30) mmol/L BUN 33 H (9-20) mg/dL Glucose 338 H (74-99) mg/dL POC Glucose (mg/dL) (75-99) mg/dL AST 118 H (17-59) U/L ALT 66 H (4-49) U/L Lactate Dehydrogenase (313-618) U/L C-Reactive Protein (<10.0) mg/L 01/28/21 01/28/21 01/28/21 Range/Units 16:49 16:49 19:08 RBC (4.30-5.90) m/uL Hgb (13.0-17.0) g/dL Hct (39.0-53.0) % Lymphocytes # (1.0-4.8) k/uL Eosinophils # (0.04-0.35) X 10*3/uL APTT (22.0-30.0) sec D-Dimer 0.95 H (<0.60) mg/L FEU Sodium (137-145) mmol/L Potassium (3.5-5.1) mmol/L Chloride (98-107) mmol/L Carbon Dioxide (22-30) mmol/L BUN (9-20) mg/dL Glucose (74-99) mg/dL POC Glucose (mg/dL) 315 H (75-99) mg/dL AST (17-59) U/L ALT (4-49) U/L Lactate Dehydrogenase 1776 H (313-618) U/L C-Reactive Protein 260.1 H (<10.0) mg/L 01/28/21 01/28/21 01/29/21 Range/Units 19:17 23:21 05:25 RBC 4.08 L (4.30-5.90) m/uL Hgb 12.8 L (13.0-17.0) g/dL Hct 38.8 L (39.0-53.0) % Lymphocytes # 0.53 L (1.0-4.8) k/uL Eosinophils # 0 L (0.04-0.35) X 10*3/uL APTT (22.0-30.0) sec D-Dimer (<0.60) mg/L FEU Sodium 131 L (137-145) mmol/L Potassium 5.2 H (3.5-5.1) mmol/L Chloride (98-107) mmol/L Carbon Dioxide 19 L (22-30) mmol/L BUN 34 H (9-20) mg/dL Glucose 301 H (74-99) mg/dL POC Glucose (mg/dL) 335 H (75-99) mg/dL AST 121 H (17-59) U/L ALT 73 H (4-49) U/L Lactate Dehydrogenase (313-618) U/L C-Reactive Protein (<10.0) mg/L 01/29/21 01/29/21 Range/Units 07:29 12:10 RBC (4.30-5.90) m/uL Hgb (13.0-17.0) g/dL Hct (39.0-53.0) % Lymphocytes # (1.0-4.8) k/uL Eosinophils # (0.04-0.35) X 10*3/uL APTT (22.0-30.0) sec D-Dimer (<0.60) mg/L FEU Sodium (137-145) mmol/L Potassium (3.5-5.1) mmol/L Chloride (98-107) mmol/L Carbon Dioxide (22-30) mmol/L BUN (9-20) mg/dL Glucose (74-99) mg/dL POC Glucose (mg/dL) 286 H 318 H (75-99) mg/dL AST (17-59) U/L ALT (4-49) U/L Lactate Dehydrogenase (313-618) U/L C-Reactive Protein (<10.0) mg/L Assessment and Plan Assessment: Acute bilateral covid pneumonia Acute hypoxic respiratory failure Increased inflammatory markers 2 diabetes mellitus with hyperglycemia Hypertension Hyperlipidemia Plan: This is a pleasant 55 years old male who presents with Covid pneumonia. Continue with vitamin C, vitamin D and sink, continue with steroids and remdesivir , pulmonary consult. Labs and medication were reviewed.. Continue same treatment. Continue with symptomatic treatment. Resume home medication. Monitor lytes and vitals. DVT and GI prophylaxis. Further recommendationsas per clinical course of the patient DVT prophylaxis: Subcutaneous Lovenox GI Prophylaxis: Ppiepcid PT/OT: Pending Prognosis is guarded
--- NOTE | 2021-01-29 23:26 | CONS ---
CONSULTATION DATE OF SERVICE: 01/29/2021 REASON FOR CONSULTATION: COVID-19 pneumonia. HISTORY OF PRESENT ILLNESS: The patient is a 55-year-old male with a past medical history of diabetes presenting to the ER by EMS for evaluation of nausea, vomiting and bad reflux. This patient's symptoms had been going on for 2 days before presentation to the hospital. The patient apparently did have outpatient testing positive for COVID two days ago, and the patient has been complaining of more shortness of breath on minimal exertion. The patient also has a mild cough, not bringing up any purulent sputum. No hemoptysis. No pleuritic chest pain. With persistent nausea, vomiting, reflux and diarrhea the patient called EMS. On arrival of the EMS the patient was noted to be hypoxic with O2 saturation of 75% on room air. Subsequently the patient was brought into the ER. On arrival in this ER, the patient did have a fever of 100.6 degrees Fahrenheit. The patient was hypoxic at 80% on arrival and is currently 90% on 4 L nasal cannula. The patient did have a normal white count with lymphopenia. He did have elevated D-dimer as well as CRP. The patient did have a chest x-ray with evidence of bilateral infiltrate. The patient has been admitted to the hospital. Infectious Disease was consulted for further management. REVIEW OF SYSTEMS: Positive points have been mentioned in the HPI. Rest of the systems are negative. PAST MEDICAL HISTORY: Diabetes mellitus, hypertension, hyperlipidemia, history of colon polyps. PAST SURGICAL HISTORY: Colonoscopy. SOCIAL HISTORY: No history of smoking or drinking. Does admit to marijuana use. FAMILY HISTORY: No pertinent findings noticed. ALLERGIES: LIPITOR. MEDICATIONS: The patient is currently on Tylenol, Xanax, vitamin C, vitamin D3, Decadron, Lovenox, Glucotrol, NovoLog, Tradjenta, Glucophage, Narcan, Zofran, Protonix, Actos, remdesivir. PHYSICAL EXAMINATION: Blood pressure 107/64, pulse of 68, temperature 98.1, T-max 100.0. He is 90% on 4 L nasal cannula. General description is a middle-aged male lying in bed in no distress. No tachypnea or accessory muscle of respiration use. HEENT: Examination shows no pallor or scleral icterus. Oral mucous membrane is dry. NECK: Trachea is central. No thyromegaly. LUNGS: Unlabored breathing with decreased intensity of breath sounds. No wheeze or crackle. HEART: S1, S2. Regular rate and rhythm. ABDOMEN: Soft. No tenderness. No guarding or rigidity. SKIN EXAMINATION: No rash or mass palpable. Neurologically the patient is awake, alert, oriented x3. Mood and affect normal. LABS: Hemoglobin is 12.8, white count 6.99. D-dimer is 0.94. BUN of 34, creatinine 1.12. Liver enzymes are mildly elevated. CRP was elevated. Chest x-ray with bilateral infiltrate. DIAGNOSTIC IMPRESSION AND PLAN: Patient admitted to hospital with increasing shortness of breath and also complaining of reflux, nausea, vomiting. The patient did have a fever, hypoxemia, now with evidence of bilateral infiltrates secondary to COVID-19 infection. PLAN: 1. Patient is currently in the therapeutic window for remdesivir, which has been started appropriately. 2. Dexamethasone, Lovenox, zinc and ascorbic acid. 3. respiratory support. 4. Will follow clinical condition and culture to further adjust medication if needed. Thank you for this consultation. Will follow this patient along with you. MMODL / IJN: [id number] /
[2021-01-30] MEDS: SODIUM CHLORIDE 0.9% 1,000 ML IV SCH ×2 (01:11→12:22)
[2021-01-30] MEDS: ACETAMINOPHEN TAB 325 MG TAB PO PRN (04:32)
[2021-01-30 07:17] LABS: Glucose,Whole Blood 228 mg/dL (75-99)
[2021-01-30] MEDS: ENOXAPARIN 40 MG/0.4 ML SYRINGE SQ SCH ×2 (08:15→20:50)
[2021-01-30] MEDS: glipiZIDE 10 MG TAB PO SCH ×2 (08:15→17:20)
[2021-01-30] MEDS: DEXAMETHASONE SOD PHOSPHATE 10 MG/ML 1 ML VIAL IV SCH (08:15)
[2021-01-30] MEDS: ASCORBIC ACID 500 MG TAB PO SCH (08:16)
[2021-01-30] MEDS: LINAGLIPTIN 5 MG TABLET PO SCH (08:17)
[2021-01-30] MEDS: metFORMIN 500 MG TAB PO SCH ×2 (08:17→20:50)
[2021-01-30] MEDS: PANTOPRAZOLE 40 MG/10 ML VIAL IVP SCH (08:17)
[2021-01-30] MEDS: INSULIN ASPART (NovoLOG) 100 UNIT/ML VIAL SQ SCH ×4 (08:19→20:51)
[2021-01-30 09:46] LABS: AST 62 U/L (17-59); African American GFR (CKD) >90 (>60 ml/min/1.73 sqM); Albumin 3.9 g/dL (3.5-5.0); Alkaline Phosphatase 123 U/L (38-126); Anion Gap 16 mmol/L; Blood Urea Nitrogen 28 mg/dL (9-20); C Reactive Protein 76.5 mg/L (<10.0); Calcium 9.1 mg/dL (8.4-10.2); Carbon Dioxide 18 mmol/L (22-30); Chloride 107 mmol/L (98-107); Glucose 266 mg/dL (74-99); LDH 1495 U/L (313-618); Non-African American GFR(CKD) 88 (>60 ml/min/1.73 sqM); Potassium 4.8 mmol/L (3.5-5.1); Sodium 141 mmol/L (137-145); Total Bilirubin 0.7 mg/dL (0.2-1.3); Total Protein 7.1 g/dL (6.3-8.2)
[2021-01-30 09:59] LABS: ALT 69 U/L (4-49)
[2021-01-30] MEDS: PIOGLITAZONE 45 MG TAB PO SCH (12:22)
[2021-01-30] MEDS: CHOLECALCIFEROL 25 MCG (1000 IU) TABLET PO SCH (12:22)
[2021-01-30] MEDS: REMDESIVIR 100 MG in SODIUM CHLORIDE 0.9% 250 ML IVPB SCH (12:22)
[2021-01-30 12:28] LABS: Glucose,Whole Blood 297 mg/dL (75-99)
--- NOTE | 2021-01-30 13:12 | P.PN ---
Subjective Progress Note Date: 01/30/21 Principal diagnosis: Covid 19 pneumonia 55-year-old male patient with past medical history of diabetes mellitus, hypertension, hyperlipidemia, past history of smoking, which is currently in remission, presented to the emergency department on 01/28/2021 with complaints of worsening dyspnea, cough and fever. He started with symptoms of nausea, diarrhea, and acid reflux about 7 days ago. In the last couple of days he is more short of breath and coughing. Patient had a appointment with his PCP a few days ago concerning his acid reflux and had outpatient COVID test done, which came back +2 days ago. Patient presented to the emergency department for further evaluation and treatment for symptoms of worsening dyspnea, mild cough, and increasing nausea and vomiting and some epigastric discomfort. When EMS arrived at his home his pulse ox was 75% on room air, he was placed on supplemental oxygen. He received some fluids, Zofran prior to arrival. Denies any history of chronic lung disease. Chest x-ray in the emergency department shows bilateral infiltrates. Admission labs showed white blood cell count of 6.7, hemoglobin 13.1, lymphocyte count 0.5, d-dimer is 0.95, sodium is 1:30, potassium is 5.0, chloride is 97, CO2 is 20, BUN of 33, creatinine is 1.11, lactic acid was 1.9, AST is 118, ALT is 66, LDH was 1776, and CRP is 260. Lipase was 235. Patient was started on IV dexamethasone 6 program daily, prophylactic Lovenox 40 mg, continues on IV fluids, vitamins, and we will start Remdesivir and 1 unit of convalescent plasma today On 01/30/2021 patient seen in follow-up in the observation unit, still feels weak, and has exertional dyspnea, lung sounds reveal diffuse crackles, today's Remdesivir date 2, patient is still on supplemental oxygen, 3-4 L which we will try to attempt weaning down, appetite is still poor, no fever or chills, overall patient still feels fatigued and weak, appears to be in no acute distress. Today's labs have been reviewed, d-dimer has trended up and up to 3.62, LDH and CRP are common down and are at 1495 and 76.5 respectively. No chest discomfort, occasional cough, no nausea or vomiting. Remains on IV hydration 0.9 normal saline at 75 ML per hour. Decadron 6 mg daily and Lovenox 40 mg twice daily Objective - Vital Signs Vital signs: Vital Signs Temp 97.3 F L 01/30/21 12:45 Pulse 80 01/30/21 12:45 Resp 15 01/30/21 12:45 BP 106/83 01/30/21 12:45 Pulse Ox 88 L 01/30/21 12:45 Intake & Output 01/29/21 01/30/21 01/30/21 18:59 06:59 18:59 Other: Voiding Method Toilet # Voids 1 1 - Exam GENERAL EXAM: Alert, very pleasant, 55-year-old male, on 2 L of oxygen and a pulse ox of 94% comfortable in no apparent distress. HEAD: Normocephalic/atraumatic. EYES: Normal reaction of pupils, equal size. Conjunctiva pink, sclera white. NOSE: Clear with pink turbinates. THROAT: No erythema or exudates. NECK: No masses, no JVD, no thyroid enlargement, no adenopathy. CHEST: No chest wall deformity. Symmetrical expansion. LUNGS: Equal air entry with diffuse crackles CVS: Regular rate and rhythm, normal S1 and S2, no gallops, no murmurs, no rubs ABDOMEN: Soft, nontender. No hepatosplenomegaly, normal bowel sounds, no guarding or rigidity. EXTREMITIES: No clubbing, no edema, no cyanosis, 2+ pulses and upper and lower extremities. MUSCULOSKELETAL: Muscle strength and tone normal. SPINE: No scoliosis or deformity SKIN: No rashes CENTRAL NERVOUS SYSTEM: Alert and oriented -3. No focal deficits, tone is normal in all 4 extremities. PSYCHIATRIC: Alert and oriented -3. Appropriate affect. Intact judgment and insight. - Labs CBC & Chem 7: 01/29/21 05:25 01/30/21 09:08 Labs: Abnormal Lab Results - Last 24 Hours (Table) 01/29/21 01/29/21 01/30/21 Range/Units 17:02 19:55 07:07 D-Dimer (<0.60) mg/L FEU Carbon Dioxide (22-30) mmol/L BUN (9-20) mg/dL Glucose (74-99) mg/dL POC Glucose (mg/dL) 294 H 353 H 228 H (75-99) mg/dL AST (17-59) U/L ALT (4-49) U/L Lactate Dehydrogenase (313-618) U/L C-Reactive Protein (<10.0) mg/L 01/30/21 01/30/21 01/30/21 Range/Units 09:08 09:08 12:13 D-Dimer 3.62 H (<0.60) mg/L FEU Carbon Dioxide 18 L (22-30) mmol/L BUN 28 H (9-20) mg/dL Glucose 266 H (74-99) mg/dL POC Glucose (mg/dL) 297 H (75-99) mg/dL AST 62 H (17-59) U/L ALT 69 H (4-49) U/L Lactate Dehydrogenase 1495 H (313-618) U/L C-Reactive Protein 76.5 H (<10.0) mg/L Microbiology - Last 24 Hours (Table) 01/28/21 17:05 Blood Culture - Preliminary Blood No Growth after 24 hours 01/28/21 17:05 Blood Culture - Preliminary Blood No Growth after 24 hours Assessment and Plan Plan: Assessment: #1. Acute hypoxic respiratory failure related to acute COVID 19 pneumonia, with onset of symptoms 7 days prior to the presentation to the hospital, positive COVID test results on 01/27/2021, patient will be started on Remdesivir treatment on 01/29/2021 and will be given convalescent plasma depending on availability #2. Nausea, vomiting, gastric reflux, dehydration, fever, shortness of breath related to the above #3. Former smoker #4. Diabetes mellitus type 2 #5. Hypertension #6. Hyperlipidemia #7. Hyponatremia related to hypovolemia and dehydration #8. Increased inflammatory markers related to acute COVID 19 infection Plan: Continue current medical treatment, today is day two of Remdesivir, continue Decadron, continue same dose Lovenox, patient is generally still weak, still requiring supplemental oxygen, continue to monitor his clinical course, continue to follow his d-dimer, inflammatory markers, follow-up chest x-ray tomorrow. I performed a history & physical examination of the patient and discussed their management with my nurse practitioner, Mayra Lam. I reviewed the nurse practitioner's note and agree with the documented findings and plan of care. Lung sounds are positive for diminished breath sounds. The findings and the impression was discussed with the patient. I attest to the documentation by the nurse practitioner. Time with Patient: Less than 30
--- NOTE | 2021-01-30 16:33 | PN ---
PROGRESS NOTE DATE OF SERVICE: 01/30/2021 REASON FOR FOLLOWUP: COVID-19 pneumonia. INTERVAL HISTORY: The patient is currently afebrile. The patient is breathing more comfortably. He is currently improved. . Denies having any chest pain. Cough has decreased intensity. No vomiting. No abdominal pain. No diarrhea. PHYSICAL EXAMINATION: Blood pressure 111/68 with a pulse of 66, temperature 98. He is 92% on 2 L nasal cannula. General description is a middle-aged male in the chair in no distress. RESPIRATORY SYSTEM: Unlabored breathing, decreased intensity breath sounds. No wheeze. HEART: S1, S2. Regular rate and rhythm. ABDOMEN: Soft, no tenderness. LABS: BUN of 28, creatinine 0.98. DIAGNOSTIC IMPRESSION AND PLAN: Patient with acute COVID-19 infection, patient seemed to have overall clinical response currently by protocol with remdesivir, dexamethasone, Lovenox, zinc and ascorbic acid to continue along with respiratory support and monitor clinical course closely. MMODL / IJN: [id number] /
[2021-01-30 17:05] LABS: Glucose,Whole Blood 386 mg/dL (75-99)
[2021-01-30 19:51] LABS: Glucose,Whole Blood 341 mg/dL (75-99)
--- NOTE | 2021-01-30 20:13 | P.PN ---
Subjective This is a pleasant 55 years old male with past medical history of diabetes mellitus, hypertension, hyperlipidemia. Presents with respiratory symptoms of dyspnea and cough and yellowish phlegm with some nausea and GI symptoms. Patient was tested positive for coronary virus, Labs showing a slightly elevated d-dimer at 0.95, increased LDH at 1776, P C- reactive protein at 260, sodium 131, glucose more than 300, liver enzymes mildly elevated. Also patient had low-grade fever yesterday at 200. Oxygen requirement in 3-4 L/m via nasal cannula also patient is tachypneic with breathing rate at 22/m. Patient is been evaluated by pulmonary team. His currently on vitamin C, vitamin D and sink. On normal saline at 75 mL/h, dexamethasone, IV 6 mg daily. Also he was started on remdesivir today. 01/30/2021 Patient is breathing quietly, his dyspnea improving as he states. Still with coughing and a little phlegm. He denies chest pain abdominal pain, no nausea vomiting or diarrhea Oxygen saturation improving to 2 L/m today. No fever today. And his breathing rate down to 16-18 breaths per minute, which is normal His d-dimer went up to 3.6 today and his Lovenox dose was increased to 40 mg twice daily. LDH and C-reactive protein slightly trending down to 1495 and 76 respectively. Glucose is still more than 300 and his Missy linagliptin was discontinued and glipizide switched to home dose at 10 mg daily but he was started on Levemir 15 units at bedtime with insulin sliding scale. Patient continue on remdesivir, vitamin C, vitamin D and jennifer and dexamethasone. He is on normal saline at 75 mL/h Review of systems CONSTITUTIONAL: No fever, no malaise, no fatigue. HEENT: No recent visual problems or hearing problems. Denied any sore throat. CARDIOVASCULAR: No orthopnea, PND, no palpitations, no syncope. PULMONARY: No chest wall tenderness, no hemoptysis. GASTROINTESTINAL: No diarrhea, no nausea, no vomiting, no abdominal pain. Normoactive bowel sounds. NEUROLOGICAL: No headaches, no weakness, no numbness. HEMATOLOGICAL: Denies any bleeding or petechiae. GENITOURINARY: Denies any burning micturition, frequency, or urgency. MUSCULOSKELETAL/RHEUMATOLOGICAL: Denies any joint pain, swelling, or any muscle pain. ENDOCRINE: Denies any polyuria or polydipsia. Active Medications Generic Name Dose Route Start Last Admin Trade Name Freq PRN Reason Stop Dose Admin Acetaminophen 650 mg 01/28/21 18:24 01/30/21 04:32 Acetaminophen Tab 325 Mg Tab PO 650 mg Q6HR PRN Administration Mild Pain or Fever > 100.5 Alprazolam 0.25 mg 01/28/21 18:42 Alprazolam 0.25 Mg Tab PO TID PRN Anxiety Ascorbic Acid 1,000 mg 01/29/21 09:00 01/30/21 08:16 Ascorbic Acid 500 Mg Tab PO 1,000 mg DAILY ROSE MARIE Administration Cholecalciferol 25 mcg 01/28/21 18:45 01/30/21 12:22 Cholecalciferol 25 Mcg (1000 Iu) Tablet PO 25 mcg DAILY ROSE MARIE Administration Dexamethasone Sodium Phosphate 6 mg 01/28/21 18:30 01/30/21 08:15 Dexamethasone Sod Phosphate 10 Mg/Ml 1 Ml Vial IV 6 mg DAILY ROSE MARIE Administration Enoxaparin Sodium 40 mg 01/30/21 21:00 Enoxaparin 40 Mg/0.4 Ml Syringe SQ BID ROSE MARIE Glipizide 10 mg 01/31/21 07:30 Glipizide 10 Mg Tab PO [id number] ROSE MARIE Sodium Chloride 1,000 mls @ 75 mls/hr 01/28/21 18:30 01/30/21 12:22 Saline 0.9% IV 75 mls/hr .[id number] ROSE MARIE Administration Remdesivir 100 mg/ Sodium 250 mls @ 250 mls/hr 01/30/21 12:00 01/30/21 12:22 Chloride IVPB 02/02/21 12:59 250 mls/hr DAILY@1200 ROSE MARIE Administration Insulin Aspart 0 unit 01/30/21 21:00 Insulin Aspart (Novolog) 100 Unit/Ml Vial SQ [facility] Protocol Insulin Detemir 10 unit 01/30/21 21:00 Insulin Detemir (Levemir) 100 Unit/Ml Syr SQ HS ROSE MARIE Metformin HCl 1,000 mg 01/28/21 21:00 01/30/21 08:17 Metformin 500 Mg Tab PO 1,000 mg BID ROSE MARIE Administration Naloxone HCl 0.2 mg 01/28/21 18:24 Naloxone 0.4 Mg/Ml 1 Ml Vial IV Q2M PRN Opioid Reversal Ondansetron HCl 4 mg 01/28/21 18:24 01/29/21 02:45 Ondansetron 4 Mg/2 Ml Vial IVP 4 mg Q8HR PRN Administration Nausea And Vomiting Pantoprazole Sodium 40 mg 01/29/21 09:00 01/30/21 08:17 Pantoprazole 40 Mg/10 Ml Vial IVP 40 mg DAILY ROSE MARIE Administration Pioglitazone HCl 45 mg 01/29/21 09:00 01/30/21 12:22 Pioglitazone 45 Mg Tab PO 45 mg DAILY ROSE MARIE Administration Objective - Vital Signs Vital signs: Vital Signs Temp 98 F 01/30/21 15:59 Pulse 66 01/30/21 15:59 Resp 17 01/30/21 15:59 BP 111/68 01/30/21 15:59 Pulse Ox 91 L 01/30/21 15:59 Intake & Output 01/29/21 01/30/21 01/30/21 18:59 06:59 18:59 Intake Total 0 Balance 0 Intake: Blood Product 0 Ffp Pher Conval Covid19 0 Acda 2 Unit [id number] Other: Voiding Method Toilet # Voids 1 1 - Exam GENERAL: The patient is alert and oriented x3, not in any acute distress. Well developed, well nourished. HEENT: Pupils are round and equally reacting to light. EOMI. No scleral icterus. No conjunctival pallor. Normocephalic, atraumatic. No pharyngeal erythema. No thyromegaly. CARDIOVASCULAR: S1 and S2 present. No murmurs, rubs, or gallops. PULMONARY: Chest is clear to auscultation, no wheezing or crackles. ABDOMEN: Soft, nontender, nondistended, normoactive bowel sounds. No palpable organomegaly. MUSCULOSKELETAL: No joint swelling or deformity. EXTREMITIES: No cyanosis, clubbing, or pedal edema. NEUROLOGICAL: Gross neurological examination did not reveal any focal deficits. SKIN: No rashes. no petechiae. - Labs CBC & Chem 7: 01/29/21 05:25 01/30/21 09:08 Labs: Abnormal Lab Results - Last 24 Hours (Table) 01/29/21 01/29/21 01/30/21 Range/Units 17:02 19:55 07:07 D-Dimer (<0.60) mg/L FEU Carbon Dioxide (22-30) mmol/L BUN (9-20) mg/dL Glucose (74-99) mg/dL POC Glucose (mg/dL) 294 H 353 H 228 H (75-99) mg/dL AST (17-59) U/L ALT (4-49) U/L Lactate Dehydrogenase (313-618) U/L C-Reactive Protein (<10.0) mg/L 01/30/21 01/30/21 01/30/21 Range/Units 09:08 09:08 12:13 D-Dimer 3.62 H (<0.60) mg/L FEU Carbon Dioxide 18 L (22-30) mmol/L BUN 28 H (9-20) mg/dL Glucose 266 H (74-99) mg/dL POC Glucose (mg/dL) 297 H (75-99) mg/dL AST 62 H (17-59) U/L ALT 69 H (4-49) U/L Lactate Dehydrogenase 1495 H (313-618) U/L C-Reactive Protein 76.5 H (<10.0) mg/L Microbiology - Last 24 Hours (Table) 01/28/21 17:05 Blood Culture - Preliminary Blood No Growth after 24 hours 01/28/21 17:05 Blood Culture - Preliminary Blood No Growth after 24 hours Assessment and Plan Assessment: Acute bilateral covid pneumonia Acute hypoxic respiratory failure Increased inflammatory markers 2 diabetes mellitus with hyperglycemia Hypertension Hyperlipidemia Plan: This is a pleasant 55 years old male who presents with Covid pneumonia. Continue with vitamin C, vitamin D and sink, continue with steroids and remdesivir , pulmonary consult. Labs and medication were reviewed.. Continue same treatment. Continue with symptomatic treatment. Resume home medication. Monitor lytes and vitals. DVT and GI prophylaxis. Further recommendationsas per clinical course of the patient DVT prophylaxis: Subcutaneous Lovenox GI Prophylaxis: Ppiepcid PT/OT: Pending Prognosis is guarded
[2021-01-30] MEDS: INSULIN DETEMIR (LEVEMIR) 100 UNIT/ML SYR SQ SCH (20:50)
[2021-01-31] MEDS: SODIUM CHLORIDE 0.9% 1,000 ML IV SCH ×3 (03:55→17:41)
[2021-01-31 07:29] LABS: Glucose,Whole Blood 121 mg/dL (75-99)
--- NOTE | 2021-01-31 08:29 | XR ---
EXAMINATION TYPE: XR chest 1V portable DATE OF EXAM: 01/31/2021 COMPARISON: 01/28/2021 INDICATION: Covid, cough TECHNIQUE: Single frontal view of the chest is obtained. FINDINGS: The heart size is normal. The pulmonary vasculature is normal. Diffuse increased lung markings are present to the mid lower lung dacosta. This may be more focal left lower lobe. Findings are worsening over the interval. IMPRESSION: 1. Worsening bilateral lung infiltrates can be compatible with atypical pneumonia
[2021-01-31] MEDS: INSULIN ASPART (NovoLOG) 100 UNIT/ML VIAL SQ SCH ×5 (08:44→21:16)
[2021-01-31] MEDS: ASCORBIC ACID 500 MG TAB PO SCH (09:09)
[2021-01-31] MEDS: glipiZIDE 10 MG TAB PO SCH (09:09)
[2021-01-31] MEDS: metFORMIN 500 MG TAB PO SCH ×2 (09:09→21:15)
[2021-01-31] MEDS: PANTOPRAZOLE 40 MG/10 ML VIAL IVP SCH (09:09)
[2021-01-31] MEDS: PIOGLITAZONE 45 MG TAB PO SCH (09:09)
[2021-01-31] MEDS: CHOLECALCIFEROL 25 MCG (1000 IU) TABLET PO SCH (09:09)
[2021-01-31] MEDS: ENOXAPARIN 40 MG/0.4 ML SYRINGE SQ SCH ×2 (09:10→21:15)
[2021-01-31] MEDS: DEXAMETHASONE SOD PHOSPHATE 10 MG/ML 1 ML VIAL IV SCH (09:10)
--- NOTE | 2021-01-31 10:41 | P.PN ---
Subjective Progress Note Date: 01/31/21 Principal diagnosis: CoVID 19 pneumonia 55-year-old male patient with past medical history of diabetes mellitus, hypertension, hyperlipidemia, past history of smoking, which is currently in remission, presented to the emergency department on 01/28/2021 with complaints of worsening dyspnea, cough and fever. He started with symptoms of nausea, diarrhea, and acid reflux about 7 days ago. In the last couple of days he is more short of breath and coughing. Patient had a appointment with his PCP a few days ago concerning his acid reflux and had outpatient COVID test done, which came back +2 days ago. Patient presented to the emergency department for further evaluation and treatment for symptoms of worsening dyspnea, mild cough, and increasing nausea and vomiting and some epigastric discomfort. When EMS arrived at his home his pulse ox was 75% on room air, he was placed on supplemental oxygen. He received some fluids, Zofran prior to arrival. Denies any history of chronic lung disease. Chest x-ray in the emergency department shows bilateral infiltrates. Admission labs showed white blood cell count of 6.7, hemoglobin 13.1, lymphocyte count 0.5, d-dimer is 0.95, sodium is 1:30, potassium is 5.0, chloride is 97, CO2 is 20, BUN of 33, creatinine is 1.11, lactic acid was 1.9, AST is 118, ALT is 66, LDH was 1776, and CRP is 260. Lipase was 235. Patient was started on IV dexamethasone 6 program daily, prophylactic Lovenox 40 mg, continues on IV fluids, vitamins, and we will start Remdesivir and 1 unit of convalescent plasma today On 01/30/2021 patient seen in follow-up in the observation unit, still feels weak, and has exertional dyspnea, lung sounds reveal diffuse crackles, today's Remdesivir date 2, patient is still on supplemental oxygen, 3-4 L which we will try to attempt weaning down, appetite is still poor, no fever or chills, overall patient still feels fatigued and weak, appears to be in no acute distress. Today's labs have been reviewed, d-dimer has trended up and up to 3.62, LDH and CRP are common down and are at 1495 and 76.5 respectively. No chest discomfort, occasional cough, no nausea or vomiting. Remains on IV hydration 0.9 normal saline at 75 ML per hour. Decadron 6 mg daily and Lovenox 40 mg twice daily The patient is seen today 12/31/2020 follow-up in the observation unit. He is currently sitting up in a chair at the bedside. Awake and alert in no acute distress. He is still requiring 4 L/m per nasal cannula to maintain O2 saturation in the high 80s low 90s. Chest x-rays revealing worsening bilateral infiltrates compatible with atypical pneumonia. This will be day #3 of Remdesivir. He did receive 1 unit of convalescent plasma. 0.9 normal sinus 75 ML's per hour. Blood glucose 121. Inflammatory markers pending. Blood cultures reveal no growth. Remains on Decadron, Lovenox, vitamin supplements. Objective - Vital Signs Vital signs: Vital Signs Temp 97.7 F 01/31/21 03:50 Pulse 78 01/31/21 03:50 Resp 24 01/31/21 03:51 BP 95/61 01/31/21 03:50 Pulse Ox 92 L 01/31/21 03:51 Intake & Output 01/30/21 01/31/21 01/31/21 18:59 06:59 18:59 Intake Total 2317 725 Balance 2317 725 Intake: Intake, IV Titration 1150 725 Amount Remdesivir 100 mg In 250 Sodium Chloride 0.9% 250 ml @ 250 mls/hr IVPB DAILY@1200 [facility] Rx#: [id number] Sodium Chloride 0.9% 1, 900 725 000 ml @ 75 mls/hr IV . [id number] ROSE MARIE Rx#:[id number] Oral 950 Blood Product 217 Ffp Pher Conval Covid19 217 Acda 2 Unit [id number] Other: Voiding Method Toilet # Voids 4 1 - Exam GENERAL EXAM: Alert, very pleasant, 55-year-old male, on 4 L of oxygen, comfortable in no apparent distress. HEAD: Normocephalic/atraumatic. EYES: Normal reaction of pupils, equal size. Conjunctiva pink, sclera white. NOSE: Clear with pink turbinates. THROAT: No erythema or exudates. NECK: No masses, no JVD, no thyroid enlargement, no adenopathy. CHEST: No chest wall deformity. Symmetrical expansion. LUNGS: Equal air entry with diffuse crackles CVS: Regular rate and rhythm, normal S1 and S2, no gallops, no murmurs, no rubs ABDOMEN: Soft, nontender. No hepatosplenomegaly, normal bowel sounds, no guarding or rigidity. EXTREMITIES: No clubbing, no edema, no cyanosis, 2+ pulses and upper and lower extremities. MUSCULOSKELETAL: Muscle strength and tone normal. SPINE: No scoliosis or deformity SKIN: No rashes CENTRAL NERVOUS SYSTEM: No focal deficits, tone is normal in all 4 extremities. PSYCHIATRIC: Alert and oriented -3. Appropriate affect. Intact judgment and insight. - Labs CBC & Chem 7: 01/29/21 05:25 01/30/21 09:08 Labs: Abnormal Lab Results - Last 24 Hours (Table) 01/30/21 01/30/21 01/30/21 Range/Units 12:13 17:03 19:49 POC Glucose (mg/dL) 297 H 386 H 341 H (75-99) mg/dL 01/31/21 Range/Units 07:28 POC Glucose (mg/dL) 121 H (75-99) mg/dL Microbiology - Last 24 Hours (Table) 01/28/21 17:05 Blood Culture - Preliminary Blood No Growth after 48 hours 01/28/21 17:05 Blood Culture - Preliminary Blood No Growth after 48 hours Assessment and Plan Assessment: 1 Acute hypoxic respiratory failure related to acute COVID 19 pneumonia, with onset of symptoms 7 days prior to the presentation to the hospital, positive COVID test results on 01/27/2021, started on Remdesivir treatment on 01/29/2021 and received 1 unit of convalescent plasma 2 Nausea, vomiting, gastric reflux, dehydration, fever, shortness of breath related to the above 3 Former smoker 4 Diabetes mellitus type 2 5 Hypertension 6 Hyperlipidemia 7 Hyponatremia related to hypovolemia and dehydration 8 Increased inflammatory markers related to acute COVID 19 infection Plan: The patient was seen and evaluated by Dr. Medellin Chest x-ray reviewed Labs pending Date #3 of Remdesivir Received convalescent plasma Continue Decadron, Lovenox, vitamin supplements Titrate the FiO2 as tolerated We'll continue to follow I, the cosigning physician, performed a history & physical examination of the patient. Lungs sounds with crackles in the bilateral posterior bases. Maintaining good O2 saturations in the 90s on 4 L/m per nasal cannula. I discussed the assessment and plan of care with my nurse practitioner, Maryam Cunningham. I attest to the above note as dictated by her.
[2021-01-31 11:34] LABS: ALT 51 U/L (4-49); AST 38 U/L (17-59); African American GFR (CKD) >90 (>60 ml/min/1.73 sqM); Albumin 3.4 g/dL (3.5-5.0); Alkaline Phosphatase 101 U/L (38-126); Anion Gap 10 mmol/L; Blood Urea Nitrogen 24 mg/dL (9-20); C Reactive Protein 63.9 mg/L (<10.0); Calcium 9.2 mg/dL (8.4-10.2); Carbon Dioxide 22 mmol/L (22-30); Chloride 105 mmol/L (98-107); Glucose 293 mg/dL (74-99); LDH 1141 U/L (313-618); Non-African American GFR(CKD) >90 (>60 ml/min/1.73 sqM); Potassium 4.8 mmol/L (3.5-5.1); Sodium 137 mmol/L (137-145); Total Bilirubin 0.7 mg/dL (0.2-1.3); Total Protein 6.3 g/dL (6.3-8.2)
[2021-01-31 11:52] LABS: Glucose,Whole Blood 313 mg/dL (75-99)
[2021-01-31] MEDS: REMDESIVIR 100 MG in SODIUM CHLORIDE 0.9% 250 ML IVPB SCH (12:45)
--- NOTE | 2021-01-31 13:45 | P.PN ---
Subjective This is a pleasant 55 years old male with past medical history of diabetes mellitus, hypertension, hyperlipidemia. Presents with respiratory symptoms of dyspnea and cough and yellowish phlegm with some nausea and GI symptoms. Patient was tested positive for coronary virus, Labs showing a slightly elevated d-dimer at 0.95, increased LDH at 1776, P C- reactive protein at 260, sodium 131, glucose more than 300, liver enzymes mildly elevated. Also patient had low-grade fever yesterday at 200. Oxygen requirement in 3-4 L/m via nasal cannula also patient is tachypneic with breathing rate at 22/m. Patient is been evaluated by pulmonary team. His currently on vitamin C, vitamin D and sink. On normal saline at 75 mL/h, dexamethasone, IV 6 mg daily. Also he was started on remdesivir today. 01/30/2021 Patient is breathing quietly, his dyspnea improving as he states. Still with coughing and a little phlegm. He denies chest pain abdominal pain, no nausea vomiting or diarrhea Oxygen saturation improving to 2 L/m today. No fever today. And his breathing rate down to 16-18 breaths per minute, which is normal His d-dimer went up to 3.6 today and his Lovenox dose was increased to 40 mg twice daily. LDH and C-reactive protein slightly trending down to 1495 and 76 respectively. Glucose is still more than 300 and his Missy linagliptin was discontinued and glipizide switched to home dose at 10 mg daily but he was started on Levemir 15 units at bedtime with insulin sliding scale. Patient continue on remdesivir, vitamin C, vitamin D and jennifer and dexamethasone. He is on normal saline at 75 mL/h 01/31/2021 Patient reports improvement dyspnea on both stool significantly affecting him. Distal popliteal cough and phlegm. No chest pain abdominal pain, no vomiting or diarrhea. His oxygen requirements improved down to 2 L/m. Chest x-ray showing worsening infiltrate as radiologist report however when I review it it looks the same to 3 days ago and may be some worsening in the left lower lobe. He is tachypneic 22-24 today. D-dimer is improved to 2.1. His LDH improved to 1141, C-reactive protein improved slightly to 63. Glucose was controlled this morning and high in the afternoon, he is on home regimen of metformin and glipizide, Levemir 10 units at bedtime added yesterday, we will add 5 units of NovoLog with meals. No more fever. Patient remains on dexamethasone, normal saline, Lovenox, vitamins, and remdesivir #3 Review of systems CONSTITUTIONAL: No fever, no malaise, no fatigue. HEENT: No recent visual problems or hearing problems. Denied any sore throat. CARDIOVASCULAR: No orthopnea, PND, no palpitations, no syncope. PULMONARY: No chest wall tenderness, no hemoptysis. GASTROINTESTINAL: No diarrhea, no nausea, no vomiting, no abdominal pain. Normoactive bowel sounds. NEUROLOGICAL: No headaches, no weakness, no numbness. HEMATOLOGICAL: Denies any bleeding or petechiae. GENITOURINARY: Denies any burning micturition, frequency, or urgency. MUSCULOSKELETAL/RHEUMATOLOGICAL: Denies any joint pain, swelling, or any muscle pain. ENDOCRINE: Denies any polyuria or polydipsia. Active Medications Generic Name Dose Route Start Last Admin Trade Name Freq PRN Reason Stop Dose Admin Acetaminophen 650 mg 01/28/21 18:24 01/30/21 04:32 Acetaminophen Tab 325 Mg Tab PO 650 mg Q6HR PRN Administration Mild Pain or Fever > 100.5 Alprazolam 0.25 mg 01/28/21 18:42 Alprazolam 0.25 Mg Tab PO TID PRN Anxiety Ascorbic Acid 1,000 mg 01/29/21 09:00 01/31/21 09:09 Ascorbic Acid 500 Mg Tab PO 1,000 mg DAILY [facility] Administration Cholecalciferol 25 mcg 01/28/21 18:45 01/31/21 09:09 Cholecalciferol 25 Mcg (1000 Iu) Tablet PO 25 mcg DAILY [facility] Administration Dexamethasone Sodium Phosphate 6 mg 01/28/21 18:30 01/31/21 09:10 Dexamethasone Sod Phosphate 10 Mg/Ml 1 Ml Vial IV 6 mg DAILY [facility] Administration Enoxaparin Sodium 40 mg 01/30/21 21:00 01/31/21 09:10 Enoxaparin 40 Mg/0.4 Ml Syringe SQ 40 mg BID [facility] Administration Glipizide 10 mg 01/31/21 07:30 01/31/21 09:09 Glipizide 10 Mg Tab PO 10 mg [id number] [facility] Administration Sodium Chloride 1,000 mls @ 75 mls/hr 01/28/21 18:30 01/31/21 03:55 Saline 0.9% IV 75 mls/hr .[id number] [facility] Administration Remdesivir 100 mg/ Sodium 250 mls @ 250 mls/hr 01/30/21 12:00 01/31/21 12:45 Chloride IVPB 02/02/21 12:59 250 mls/hr DAILY@1200 [facility] Administration Insulin Aspart 0 unit 01/30/21 21:00 01/31/21 12:44 Insulin Aspart (Novolog) 100 Unit/Ml Vial SQ 8 unit ACHS [facility] Administration Protocol Insulin Detemir 10 unit 01/30/21 21:00 01/30/21 20:50 Insulin Detemir (Levemir) 100 Unit/Ml Syr SQ 10 unit HS [facility] Administration Metformin HCl 1,000 mg 01/28/21 21:00 01/31/21 09:09 Metformin 500 Mg Tab PO 1,000 mg BID [facility] Administration Naloxone HCl 0.2 mg 01/28/21 18:24 Naloxone 0.4 Mg/Ml 1 Ml Vial IV Q2M PRN Opioid Reversal Ondansetron HCl 4 mg 01/28/21 18:24 01/29/21 02:45 Ondansetron 4 Mg/2 Ml Vial IVP 4 mg Q8HR PRN Administration Nausea And Vomiting Pantoprazole Sodium 40 mg 01/29/21 09:00 01/31/21 09:09 Pantoprazole 40 Mg/10 Ml Vial IVP 40 mg DAILY [facility] Administration Pioglitazone HCl 45 mg 01/29/21 09:00 01/31/21 09:09 Pioglitazone 45 Mg Tab PO 45 mg DAILY [facility] Administration Objective - Vital Signs Vital signs: Vital Signs Temp 97.7 F 01/31/21 03:50 Pulse 78 01/31/21 03:50 Resp 24 01/31/21 03:51 BP 95/61 01/31/21 03:50 Pulse Ox 92 L 01/31/21 03:51 Intake & Output 01/30/21 01/31/21 01/31/21 18:59 06:59 18:59 Intake Total 2317 725 Balance 2317 725 Intake: Intake, IV Titration 1150 725 Amount Remdesivir 100 mg In 250 Sodium Chloride 0.9% 250 ml @ 250 mls/hr IVPB DAILY@1200 [facility] Rx#: [id number] Sodium Chloride 0.9% 1, 900 725 000 ml @ 75 mls/hr IV . [id number] [facility] Rx#:[id number] Oral 950 Blood Product 217 Ffp Pher Conval Covid19 217 Acda 2 Unit [id number] Other: Voiding Method Toilet # Voids 4 1 - Exam GENERAL: The patient is alert and oriented x3, not in any acute distress. Well developed, well nourished. HEENT: Pupils are round and equally reacting to light. EOMI. No scleral icterus. No conjunctival pallor. Normocephalic, atraumatic. No pharyngeal erythema. No thyromegaly. CARDIOVASCULAR: S1 and S2 present. No murmurs, rubs, or gallops. PULMONARY: Chest is clear to auscultation, no wheezing or crackles. ABDOMEN: Soft, nontender, nondistended, normoactive bowel sounds. No palpable organomegaly. MUSCULOSKELETAL: No joint swelling or deformity. EXTREMITIES: No cyanosis, clubbing, or pedal edema. NEUROLOGICAL: Gross neurological examination did not reveal any focal deficits. SKIN: No rashes. no petechiae. - Labs CBC & Chem 7: 01/29/21 05:25 01/31/21 10:09 Labs: Abnormal Lab Results - Last 24 Hours (Table) 01/30/21 01/30/21 01/31/21 Range/Units 17:03 19:49 07:28 D-Dimer (<0.60) mg/L FEU BUN (9-20) mg/dL Glucose (74-99) mg/dL POC Glucose (mg/dL) 386 H 341 H 121 H (75-99) mg/dL ALT (4-49) U/L Lactate Dehydrogenase (313-618) U/L C-Reactive Protein (<10.0) mg/L Albumin (3.5-5.0) g/dL 01/31/21 01/31/21 01/31/21 Range/Units 10:09 10:09 11:46 D-Dimer 2.17 H (<0.60) mg/L FEU BUN 24 H (9-20) mg/dL Glucose 293 H (74-99) mg/dL POC Glucose (mg/dL) 313 H (75-99) mg/dL ALT 51 H (4-49) U/L Lactate Dehydrogenase 1141 H (313-618) U/L C-Reactive Protein 63.9 H (<10.0) mg/L Albumin 3.4 L (3.5-5.0) g/dL Microbiology - Last 24 Hours (Table) 01/28/21 17:05 Blood Culture - Preliminary Blood No Growth after 48 hours 01/28/21 17:05 Blood Culture - Preliminary Blood No Growth after 48 hours Assessment and Plan Assessment: Acute bilateral covid pneumonia Acute hypoxic respiratory failure Increased inflammatory markers 2 diabetes mellitus with hyperglycemia Hypertension Hyperlipidemia Plan: This is a pleasant 55 years old male who presents with Covid pneumonia. Continue with vitamin C, vitamin D and sink, continue with steroids and remdesivir , pulmonary consult. Labs and medication were reviewed.. Continue same treatment. Continue with s ymptomatic treatment. Resume home medication. Monitor lytes and vitals. DVT and GI prophylaxis. Further recommendationsas per clinical course of the patient DVT prophylaxis: Subcutaneous Lovenox GI Prophylaxis: Ppiepcid PT/OT: Pending Prognosis is guarded
[2021-01-31 16:57] LABS: Glucose,Whole Blood 358 mg/dL (75-99)
--- NOTE | 2021-01-31 19:11 | PN ---
PROGRESS NOTE DATE OF SERVICE: 01/31/2021 REASON FOR FOLLOWUP: COVID-19 pneumonia. INTERVAL HISTORY: Patient is currently afebrile. Patient is breathing comfortably. Patient denies having any chest pain. No shortness. Minimal cough. No abdominal pain, no diarrhea. PHYSICAL EXAMINATION: Blood pressure 120/66, pulse of 82, temperature 97.5. He is 90% on 4 L nasal cannula. General description is a middle-aged male up in the chair in no distress. Respiratory system: Unlabored breathing, decreased intensity of the breath sounds. No wheeze or crackle. Heart S1, S2. Regular rate and rhythm. Abdomen soft, no tenderness. LABS: BUN of 20, creatinine 0.85, ( ) elevated. DIAGNOSTIC IMPRESSION AND PLAN: Patient with acute COVID-19 infection. Patient is currently on Remdesivir, dexamethasone, zinc, ascorbic acid along with ( ) and has shown minimal clinical response. Continue current treatment protocol and monitor clinical course closely. MMODL / IJN: [id number] /
[2021-01-31 21:09] LABS: Glucose,Whole Blood 292 mg/dL (75-99)
[2021-01-31] MEDS: INSULIN DETEMIR (LEVEMIR) 100 UNIT/ML SYR SQ SCH (21:15)
[2021-02-01 07:21] LABS: Glucose,Whole Blood 113 mg/dL (75-99)
[2021-02-01] MEDS: INSULIN ASPART (NovoLOG) 100 UNIT/ML VIAL SQ SCH ×7 (07:45→21:24)
[2021-02-01] MEDS: CHOLECALCIFEROL 25 MCG (1000 IU) TABLET PO SCH (07:57)
[2021-02-01] MEDS: ASCORBIC ACID 500 MG TAB PO SCH (07:57)
[2021-02-01] MEDS: ENOXAPARIN 40 MG/0.4 ML SYRINGE SQ SCH ×2 (07:57→21:23)
[2021-02-01] MEDS: metFORMIN 500 MG TAB PO SCH ×2 (07:57→21:23)
[2021-02-01] MEDS: DEXAMETHASONE SOD PHOSPHATE 10 MG/ML 1 ML VIAL IV SCH (07:58)
[2021-02-01] MEDS: glipiZIDE 10 MG TAB PO SCH (07:58)
[2021-02-01] MEDS: PIOGLITAZONE 45 MG TAB PO SCH (07:58)
[2021-02-01] MEDS: PANTOPRAZOLE 40 MG/10 ML VIAL IVP SCH (07:59)
[2021-02-01 11:59] LABS: Glucose,Whole Blood 224 mg/dL (75-99)
[2021-02-01] MEDS: REMDESIVIR 100 MG in SODIUM CHLORIDE 0.9% 250 ML IVPB SCH (12:49)
--- NOTE | 2021-02-01 15:54 | P.PN ---
Subjective This is a pleasant 55 years old male with past medical history of diabetes mellitus, hypertension, hyperlipidemia. Presents with respiratory symptoms of dyspnea and cough and yellowish phlegm with some nausea and GI symptoms. Patient was tested positive for coronary virus, Labs showing a slightly elevated d-dimer at 0.95, increased LDH at 1776, P C- reactive protein at 260, sodium 131, glucose more than 300, liver enzymes mildly elevated. Also patient had low-grade fever yesterday at 200. Oxygen requirement in 3-4 L/m via nasal cannula also patient is tachypneic with breathing rate at 22/m. Patient is been evaluated by pulmonary team. His currently on vitamin C, vitamin D and sink. On normal saline at 75 mL/h, dexamethasone, IV 6 mg daily. Also he was started on remdesivir today. 01/30/2021 Patient is breathing quietly, his dyspnea improving as he states. Still with coughing and a little phlegm. He denies chest pain abdominal pain, no nausea vomiting or diarrhea Oxygen saturation improving to 2 L/m today. No fever today. And his breathing rate down to 16-18 breaths per minute, which is normal His d-dimer went up to 3.6 today and his Lovenox dose was increased to 40 mg twice daily. LDH and C-reactive protein slightly trending down to 1495 and 76 respectively. Glucose is still more than 300 and his Missy linagliptin was discontinued and glipizide switched to home dose at 10 mg daily but he was started on Levemir 15 units at bedtime with insulin sliding scale. Patient continue on remdesivir, vitamin C, vitamin D and jennifer and dexamethasone. He is on normal saline at 75 mL/h 01/31/2021 Patient reports improvement dyspnea on both stool significantly affecting him. Distal popliteal cough and phlegm. No chest pain abdominal pain, no vomiting or diarrhea. His oxygen requirements improved down to 2 L/m. Chest x-ray showing worsening infiltrate as radiologist report however when I review it it looks the same to 3 days ago and may be some worsening in the left lower lobe. He is tachypneic 22-24 today. D-dimer is improved to 2.1. His LDH improved to 1141, C-reactive protein improved slightly to 63. Glucose was controlled this morning and high in the afternoon, he is on home regimen of metformin and glipizide, Levemir 10 units at bedtime added yesterday, we will add 5 units of NovoLog with meals. No more fever. Patient remains on dexamethasone, normal saline, Lovenox, vitamins, and remdesivir #3 02/01/2021 Patient remains clinically similar to the last 2 days with dyspnea slightly better, little, and no diarrhea, oxygen requirements fluctuating between 2-4 L/m. Patient is with no labs today. He is followed closely by pulmonary service. Sugar is better controlled after that and didn't NovoLog 5 units with meals. Patient is on normal saline at 75 mL/h, dexamethasone, tomorrow at his last dose of remdesvir, Lovenox 40 mg twice daily. Objective - Vital Signs Vital signs: Vital Signs Temp 97.4 F L 02/01/21 14:00 Pulse 93 02/01/21 14:00 Resp 18 02/01/21 14:00 BP 112/71 02/01/21 14:00 Pulse Ox 91 L 02/01/21 14:00 Intake & Output 01/31/21 02/01/21 02/01/21 18:59 06:59 18:59 Intake Total 1850 290 Balance 1850 290 Intake: Intake, IV Titration 1000 Amount Remdesivir 100 mg In 250 Sodium Chloride 0.9% 250 ml @ 250 mls/hr IVPB DAILY@1200 [facility] Rx#: [id number] Sodium Chloride 0.9% 1, 750 000 ml @ 75 mls/hr IV . [id number] [facility] Rx#:[id number] Oral 850 290 Other: Voiding Method Toilet # Voids 3 3 - Exam GENERAL: The patient is alert and oriented x3, not in any acute distress. Well developed, well nourished. HEENT: Pupils are round and equally reacting to light. EOMI. No scleral icterus. No conjunctival pallor. Normocephalic, atraumatic. No pharyngeal erythema. No thyromegaly. CARDIOVASCULAR: S1 and S2 present. No murmurs, rubs, or gallops. PULMONARY: Chest is clear to auscultation, no wheezing or crackles. ABDOMEN: Soft, nontender, nondistended, normoactive bowel sounds. No palpable organomegaly. MUSCULOSKELETAL: No joint swelling or deformity. EXTREMITIES: No cyanosis, clubbing, or pedal edema. NEUROLOGICAL: Gross neurological examination did not reveal any focal deficits. SKIN: No rashes. no petechiae. - Labs CBC & Chem 7: 01/29/21 05:25 01/31/21 10:09 Labs: Abnormal Lab Results - Last 24 Hours (Table) 01/31/21 01/31/21 02/01/21 Range/Units 16:55 21:07 07:00 POC Glucose (mg/dL) 358 H 292 H 113 H (75-99) mg/dL 02/01/21 Range/Units 11:58 POC Glucose (mg/dL) 224 H (75-99) mg/dL Microbiology - Last 24 Hours (Table) 01/28/21 17:05 Blood Culture - Preliminary Blood No Growth after 72 hours 01/28/21 17:05 Blood Culture - Preliminary Blood No Growth after 72 hours Assessment and Plan Assessment: Acute bilateral covid pneumonia Acute hypoxic respiratory failure Increased inflammatory markers 2 diabetes mellitus with hyperglycemia Hypertension Hyperlipidemia Plan: This is a pleasant 55 years old male who presents with Covid pneumonia. Continue with vitamin C, vitamin D and sink, continue with steroids and remd esivir , pulmonary consult. Labs and medication were reviewed.. Continue same treatment. Continue with symptomatic treatment. Resume home medication. Monitor lytes and vitals. DVT and GI prophylaxis. Further recommendationsas per clinical course of the patient DVT prophylaxis: Subcutaneous Lovenox GI Prophylaxis: Ppiepcid PT/OT: Pending Prognosis is guarded
--- NOTE | 2021-02-01 15:57 | P.PN ---
Subjective Progress Note Date: 02/01/21 Principal diagnosis: Covid 19 pneumonia 55-year-old male patient with past medical history of diabetes mellitus, hypertension, hyperlipidemia, past history of smoking, which is currently in remission, presented to the emergency department on 01/28/2021 with complaints of worsening dyspnea, cough and fever. He started with symptoms of nausea, diarrhea, and acid reflux about 7 days ago. In the last couple of days he is more short of breath and coughing. Patient had a appointment with his PCP a few days ago concerning his acid reflux and had outpatient COVID test done, which came back +2 days ago. Patient presented to the emergency department for further evaluation and treatment for symptoms of worsening dyspnea, mild cough, and increasing nausea and vomiting and some epigastric discomfort. When EMS arrived at his home his pulse ox was 75% on room air, he was placed on supplemental oxygen. He received some fluids, Zofran prior to arrival. Denies any history of chronic lung disease. Chest x-ray in the emergency department shows bilateral infiltrates. Admission labs showed white blood cell count of 6.7, hemoglobin 13.1, lymphocyte count 0.5, d-dimer is 0.95, sodium is 1:30, potassium is 5.0, chloride is 97, CO2 is 20, BUN of 33, creatinine is 1.11, lactic acid was 1.9, AST is 118, ALT is 66, LDH was 1776, and CRP is 260. Lipase was 235. Patient was started on IV dexamethasone 6 program daily, prophylactic Lovenox 40 mg, continues on IV fluids, vitamins, and we will start Remdesivir and 1 unit of convalescent plasma today On 01/30/2021 patient seen in follow-up in the observation unit, still feels weak, and has exertional dyspnea, lung sounds reveal diffuse crackles, today's Remdesivir date 2, patient is still on supplemental oxygen, 3-4 L which we will try to attempt weaning down, appetite is still poor, no fever or chills, overall patient still feels fatigued and weak, appears to be in no acute distress. Today's labs have been reviewed, d-dimer has trended up and up to 3.62, LDH and CRP are common down and are at 1495 and 76.5 respectively. No chest discomfort, occasional cough, no nausea or vomiting. Remains on IV hydration 0.9 normal saline at 75 ML per hour. Decadron 6 mg daily and Lovenox 40 mg twice daily On 02/01/2021 patient seen in follow-up on medical surgical floor, his resting on the couch by the window, seems to be in no acute distress, breathing comfortably, he states he is improving, but feeling weak, still requiring supplemental oxygen, room air pulse ox was 87%, minimal crackles on today's exam, diarrhea has improved, today is day 4 of Remdesivir, continues on Lovenox 40 mg twice a day, his d-dimer remains elevated at 2.17, and we'll proceed with CT angios the chest to rule out possibility of pulmonary embolism. Otherwise overall he is improving, no specific complaints, no chest discomfort, no wors ening dyspnea. Objective - Vital Signs Vital signs: Vital Signs Temp 97.4 F L 02/01/21 14:00 Pulse 93 02/01/21 14:00 Resp 18 02/01/21 14:00 BP 112/71 02/01/21 14:00 Pulse Ox 91 L 02/01/21 14:00 Intake & Output 01/31/21 02/01/21 02/01/21 18:59 06:59 18:59 Intake Total 1850 290 Balance 1850 290 Intake: Intake, IV Titration 1000 Amount Remdesivir 100 mg In 250 Sodium Chloride 0.9% 250 ml @ 250 mls/hr IVPB DAILY@1200 [facility] Rx#: [id number] Sodium Chloride 0.9% 1, 750 000 ml @ 75 mls/hr IV . [id number] [facility] Rx#:[id number] Oral 850 290 Other: Voiding Method Toilet # Voids 3 3 - Exam GENERAL EXAM: Alert, very pleasant, 55-year-old male, on 2 L of oxygen and a pulse ox of 91% comfortable in no apparent distress. HEAD: Normocephalic/atraumatic. EYES: Normal reaction of pupils, equal size. Conjunctiva pink, sclera white. NOSE: Clear with pink turbinates. THROAT: No erythema or exudates. NECK: No masses, no JVD, no thyroid enlargement, no adenopathy. CHEST: No chest wall deformity. Symmetrical expansion. LUNGS: Equal air entry with diffuse crackles CVS: Regular rate and rhythm, normal S1 and S2, no gallops, no murmurs, no rubs ABDOMEN: Soft, nontender. No hepatosplenomegaly, normal bowel sounds, no guarding or rigidity. EXTREMITIES: No clubbing, no edema, no cyanosis, 2+ pulses and upper and lower extremities. MUSCULOSKELETAL: Muscle strength and tone normal. SPINE: No scoliosis or deformity SKIN: No rashes CENTRAL NERVOUS SYSTEM: Alert and oriented -3. No focal deficits, tone is normal in all 4 extremities. PSYCHIATRIC: Alert and oriented -3. Appropriate affect. Intact judgment and insight. - Labs CBC & Chem 7: 01/29/21 05:25 01/31/21 10:09 Labs: Abnormal Lab Results - Last 24 Hours (Table) 01/31/21 01/31/21 02/01/21 Range/Units 16:55 21:07 07:00 POC Glucose (mg/dL) 358 H 292 H 113 H (75-99) mg/dL 02/01/21 Range/Units 11:58 POC Glucose (mg/dL) 224 H (75-99) mg/dL Microbiology - Last 24 Hours (Table) 01/28/21 17:05 Blood Culture - Preliminary Blood No Growth after 72 hours 01/28/21 17:05 Blood Culture - Preliminary Blood No Growth after 72 hours Assessment and Plan Plan: Assessment: #1. Acute hypoxic respiratory failure related to acute COVID 19 pneumonia, with onset of symptoms 7 days prior to the presentation to the hospital, positive COVID test results on 01/27/2021, patient will be started on Remdesivir treatment on 01/29/2021 and will be given convalescent plasma depending on availability #2. Nausea, vomiting, gastric reflux, dehydration, fever, shortness of breath related to the above #3. Former smoker #4. Diabetes mellitus type 2 #5. Hypertension #6. Hyperlipidemia #7. Hyponatremia related to hypovolemia and dehydration #8. Increased inflammatory markers related to acute COVID 19 infection Plan: Continue with Remdesivir, continue with current dose Lovenox, will obtain CT angios of the chest to rule out possibility of pulmonary embolism, follow-up d- dimer tomorrow. Continue steroids, wean FiO2, follow-up labs tomorrow including BMP, d-dimer, and inflammatory markers. I performed a history & physical examination of the patient and discussed their management with my nurse practitioner, Mayra Lam. I reviewed the nurse practitioner's note and agree with the documented findings and plan of care. Lung sounds are positive for diminished breath sounds. The findings and the impression was discussed with the patient. I attest to the documentation by the nurse practitioner. Time with Patient: Less than 30
[2021-02-01] MEDS: SODIUM CHLORIDE 0.9% 1,000 ML IV SCH (16:13)
[2021-02-01 16:26] LABS: Glucose,Whole Blood 339 mg/dL (75-99)
--- NOTE | 2021-02-01 20:24 | PN ---
PROGRESS NOTE DATE OF SERVICE: 02/01/2021 REASON FOR FOLLOWUP: COVID-19 pneumonia. INTERVAL HISTORY: The patient is currently afebrile. Patient is feeling better. He is breathing more comfortably. Currently on 2 L nasal cannula. The patient denies any chest pain. Cough with decreased intensity and dry in nature. No vomiting. No abdominal pain or diarrhea. PHYSICAL EXAMINATION: Blood pressure 121/77, pulse of 79, temperature is 97.8. He is 92% on 2 L nasal cannula. General description is a middle-aged male up in the chair in no distress. Respiratory system: Unlabored breathing, decreased intensity of breath sounds. No wheeze. Heart S1, S2. Regular rate and rhythm. Abdomen soft, no tenderness. LABS: No new labs have been obtained today. DIAGNOSTIC IMPRESSION AND PLAN: Patient with acute COVID-19 pneumonia in this patient who has shown overall clinical improvement. Currently he is on protocol of Decadron, Lovenox, zinc, ascorbic acid and Remdesivir. Will complete his treatment tomorrow and monitor clinical course closely. MMODL / IJN: [id number] / MTDD
--- NOTE | 2021-02-01 20:34 | CT ---
EXAMINATION TYPE: CT chest angio for PE DATE OF EXAM: 02/01/2021 COMPARISON: Radiograph 01/31/2021 and prior. HISTORY: Elevated d-dimer, +covid. CT DLP: 444 mGycm Automated exposure control for dose reduction was used. CONTRAST: CT Chest for pulmonary embolism performed with with IV Contrast, patient injected with 100ml mL of Is ovue 370. FINDINGS: LUNGS: There are bilateral diffuse marked patchy groundglass opacities. There is no pleural effusion or pneumothorax seen. The tracheobronchial tree is patent. MEDIASTINUM: There is satisfactory enhancement of the pulmonary artery and its branches, there is no CT evidence for pulmonary embolism. There are scattered multiple borderline to mildly enlarged media stinal and hilar lymph nodes, may be reactive. No pericardial effusion is seen. OTHER: No additional significant abnormality is seen. IMPRESSION: No acute PE. Diffuse opacities, compatible with Covid pneumonia.
[2021-02-01 21:00] LABS: Glucose,Whole Blood 226 mg/dL (75-99)
[2021-02-01] MEDS: INSULIN DETEMIR (LEVEMIR) 100 UNIT/ML SYR SQ SCH (21:23)
[2021-02-02] MEDS: SODIUM CHLORIDE 0.9% 1,000 ML IV SCH (01:39)
[2021-02-02 06:52] LABS: Glucose,Whole Blood 242 mg/dL (75-99)
[2021-02-02 07:20] LABS: African American GFR (CKD) >90 (>60 ml/min/1.73 sqM); Anion Gap 11 mmol/L; Blood Urea Nitrogen 23 mg/dL (9-20); C Reactive Protein 68.4 mg/L (<10.0); Calcium 9.3 mg/dL (8.4-10.2); Carbon Dioxide 24 mmol/L (22-30); Chloride 102 mmol/L (98-107); Glucose 251 mg/dL (74-99); LDH 814 U/L (313-618); Non-African American GFR(CKD) >90 (>60 ml/min/1.73 sqM); Potassium 5.1 mmol/L (3.5-5.1); Sodium 137 mmol/L (137-145)
[2021-02-02] MEDS: PIOGLITAZONE 45 MG TAB PO SCH (08:02)
[2021-02-02] MEDS: ASCORBIC ACID 500 MG TAB PO SCH (08:02)
[2021-02-02] MEDS: INSULIN ASPART (NovoLOG) 100 UNIT/ML VIAL SQ SCH ×4 (08:02→13:58)
[2021-02-02] MEDS: metFORMIN 500 MG TAB PO SCH (08:02)
[2021-02-02] MEDS: CHOLECALCIFEROL 25 MCG (1000 IU) TABLET PO SCH (08:02)
[2021-02-02] MEDS: glipiZIDE 10 MG TAB PO SCH (08:02)
[2021-02-02] MEDS: ENOXAPARIN 40 MG/0.4 ML SYRINGE SQ SCH (08:03)
[2021-02-02 11:04] VITALS: BP 111/70; PULSE 84; RESP 16; TEMP 97.4
[2021-02-02 12:07] LABS: Glucose,Whole Blood 153 mg/dL (75-99)
--- NOTE | 2021-02-02 12:22 | P.PN ---
Subjective Progress Note Date: 02/02/21 55-year-old male patient with past medical history of diabetes mellitus, hypertension, hyperlipidemia, past history of smoking, which is currently in remission, presented to the emergency department on 01/28/2021 with complaints of worsening dyspnea, cough and fever. He started with symptoms of nausea, diarrhea, and acid reflux about 7 days ago. In the last couple of days he is more short of breath and coughing. Patient had a appointment with his PCP a few days ago concerning his acid reflux and had outpatient COVID test done, which came back +2 days ago. Patient presented to the emergency department for further evaluation and treatment for symptoms of worsening dyspnea, mild cough, and increasing nausea and vomiting and some epigastric discomfort. When EMS arrived at his home his pulse ox was 75% on room air, he was placed on supplemental oxygen. He received some fluids, Zofran prior to arrival. Denies any history of chronic lung disease. Chest x-ray in the emergency department shows bilateral infiltrates. Admission labs showed white blood cell count of 6.7, hemoglobin 13.1, lymphocyte count 0.5, d-dimer is 0.95, sodium is 1:30, potassium is 5.0, chloride is 97, CO2 is 20, BUN of 33, creatinine is 1.11, lactic acid was 1.9, AST is 118, ALT is 66, LDH was 1776, and CRP is 260. Lipase was 235. Patient was started on IV dexamethasone 6 program daily, prophylactic Lovenox 40 mg, continues on IV fluids, vitamins, and we will start Remdesivir and 1 unit of convalescent plasma today On 01/30/2021 patient seen in follow-up in the observation unit, still feels weak, and has exertional dyspnea, lung sounds reveal diffuse crackles, today's Remdesivir date 2, patient is still on supplemental oxygen, 3-4 L which we will try to attempt weaning down, appetite is still poor, no fever or chills, overall patient still feels fatigued and weak, appears to be in no acute distress. Today's labs have been reviewed, d-dimer has trended up and up to 3.62, LDH and CRP are common down and are at 1495 and 76.5 respectively. No chest discomfort, occasional cough, no nausea or vomiting. Remains on IV hydration 0.9 normal saline at 75 ML per hour. Decadron 6 mg daily and Lovenox 40 mg twice daily On 02/01/2021 patient seen in follow-up on medical surgical floor, his resting on the couch by the window, seems to be in no acute distress, breathing comfortably, he states he is improving, but feeling weak, still requiring supplemental oxygen, room air pulse ox was 87%, minimal crackles on today's exam, diarrhea has improved, today is day 4 of Remdesivir, continues on Lovenox 40 mg twice a day, his d-dimer remains elevated at 2.17, and we'll proceed with CT angios the chest to rule out possibility of pulmonary embolism. Otherwise overall he is improving, no specific complaints, no chest discomfort, no worsening dyspnea. 02/02/2021 the patient is being seen in follow-up. The patient is completing his course of Remdesivir and today is day #5. He is on room air oxygen. He is also on Decadron. He is on Lovenox 40 mg subcu on a daily basis. The patient is clinically improving. The patient is on room air oxygen. Oxidation is improved. Shortness of breath is also improved. He has no other complaints otherwise for now. His blood work showing a CRP of 68 and an LDH level of 814. Rest of the blood work is all within normal limits. D-dimer is at 1.06. CT of the chest was negative for pulmonary embolism. Objective - Vital Signs Vital signs: Vital Signs Temp 97.4 F L 02/02/21 10:00 Pulse 84 02/02/21 10:00 Resp 16 02/02/21 10:00 BP 111/70 02/02/21 10:00 Pulse Ox 94 L 02/02/21 10:00 Intake & Output 02/01/21 02/02/21 02/02/21 18:59 06:59 18:59 Other: Voiding Method Toilet # Voids 4 2 # Bowel Movements 2 - Exam GENERAL EXAM: Alert, very pleasant, 55-year-old male, on RA with a pulse ox of 94% comfortable in no apparent distress. HEAD: Normocephalic/atraumatic. EYES: Normal reaction of pupils, equal size. Conjunctiva pink, sclera white. NOSE: Clear with pink turbinates. THROAT: No erythema or exudates. NECK: No masses, no JVD, no thyroid enlargement, no adenopathy. CHEST: No chest wall deformity. Symmetrical expansion. LUNGS: Equal air entry with diffuse crackles CVS: Regular rate and rhythm, normal S1 and S2, no gallops, no murmurs, no rubs ABDOMEN: Soft, nontender. No hepatosplenomegaly, normal bowel sounds, no guarding or rigidity. EXTREMITIES: No clubbing, no edema, no cyanosis, 2+ pulses and upper and lower extremities. MUSCULOSKELETAL: Muscle strength and tone normal. SPINE: No scoliosis or deformity SKIN: No rashes CENTRAL NERVOUS SYSTEM: Alert and oriented -3. No focal deficits, tone is normal in all 4 extremities. PSYCHIATRIC: Alert and oriented -3. Appropriate affect. Intact judgment and insight. - Labs CBC & Chem 7: 01/29/21 05:25 02/02/21 05:25 Labs: Abnormal Lab Results - Last 24 Hours (Table) 02/01/21 02/01/21 02/02/21 Range/Units 16:25 20:58 05:25 D-Dimer 1.06 H (<0.60) mg/L FEU BUN (9-20) mg/dL Glucose (74-99) mg/dL POC Glucose (mg/dL) 339 H 226 H (75-99) mg/dL Lactate Dehydrogenase (313-618) U/L C-Reactive Protein (<10.0) mg/L 02/02/21 02/02/21 02/02/21 Range/Units 05:25 06:50 12:06 D-Dimer (<0.60) mg/L FEU BUN 23 H (9-20) mg/dL Glucose 251 H (74-99) mg/dL POC Glucose (mg/dL) 242 H 153 H (75-99) mg/dL Lactate Dehydrogenase 814 H (313-618) U/L C-Reactive Protein 68.4 H (<10.0) mg/L Microbiology - Last 24 Hours (Table) 01/28/21 17:05 Blood Culture - Preliminary Blood No Growth after 96 hours 01/28/21 17:05 Blood Culture - Preliminary Blood No Growth after 96 hours Assessment and Plan Plan: #1. Acute hypoxic respiratory failure related to acute COVID 19 pneumonia, with onset of symptoms 7 days prior to the presentation to the hospital, positive COVID test results on 01/27/2021, patient will be started on Remdesivir treatment on 01/29/2021 and will be given convalescent plasma depending on availability On 02/02/2021, clinically improved and the patient is currently on room air oxygen. CT of the chest showed some bilateral ground glass pulmonary infiltrates. No evidence of any pulmonary embolism. The patient is completing his course of Remdesivir the patient is also on Decadron 6 mg by mouth daily. #2. Nausea, vomiting, gastric reflux, dehydration, fever, shortness of breath related to the above #3. Former smoker #4. Diabetes mellitus type 2 #5. Hypertension #6. Hyperlipidemia #7. Hyponatremia related to hypovolemia and dehydration #8. Increased inflammatory markers related to acute COVID 19 infection Plan: Continue with Remdesivir and the patient will receive a #5 of treatment Oxygen on room air CT of the chest was noted D-dimer is low Inflammatory markers are low Complete a total of 10 day course of Decadron Possible home today. Pulmonary and critical care services will sign off.
[2021-02-02] MEDS: REMDESIVIR 100 MG in SODIUM CHLORIDE 0.9% 250 ML IVPB SCH (12:43)
[2021-02-02] MEDS ORDERED: PANTOPRAZOLE 40 MG TABLET PO STA (12:44)
[2021-02-02] MEDS ORDERED: dexAMETHasone 2 MG TAB PO SCH (12:45)
[2021-02-02] MEDS: PANTOPRAZOLE 40 MG/10 ML VIAL IVP SCH (12:51)
[2021-02-02] MEDS: DEXAMETHASONE SOD PHOSPHATE 10 MG/ML 1 ML VIAL IV SCH (12:51)
--- NOTE | 2021-02-02 21:09 | P.PN ---
Progress Note - Text Progress Note Date: 02/02/21 REASON FOR FOLLOWUP: COVID-19 pneumonia. INTERVAL HISTORY: The patient is afebrile. Patient is breathing comfortably. Currently on 2 L nasal cannula. The patient denies any chest pain, Cough with decreased intensity and dry in nature. No vomiting. No abdominal pain or diarrhea. PHYSICAL EXAMINATION: Blood pressure 120/70, pulse of 70, temperature is 97.8. He is 92% on 2 L nasal cannula. General description is a middle-aged male up in the chair in no distress. Respiratory system: Unlabored breathing, decreased intensity of breath sounds. No wheeze. Heart S1, S2. Regular rate and rhythm. Abdomen soft, no tenderness. LABS: reviewed DIAGNOSTIC IMPRESSION AND PLAN: Patient with acute COVID-19 pneumonia in this patient who has shown clinical improvement. Pt clinically improved Decadron, Lovenox, zinc, ascorbic acid and Remdesivir and monitor clinical course closely.
[2021-02-03] MEDS ORDERED: PANTOPRAZOLE 40 MG TABLET PO SCH (07:30)
[2021-02-03] MEDS ORDERED: ENOXAPARIN 40 MG/0.4 ML SYRINGE SQ SCH (09:00)
== END 2021-02-02 16:20 | disposition home or self-care (01) | DRG 177 ==
LOC: EC 16:03 → 4SSUR 17:43 → 1SOBS 01-29 01:30 → 4SSUR 01-31 22:32
PROVIDERS: ADMIT Hospitalist; ATTEND Hospitalist
PROC: XW033E5 Introduction of Remdesivir Anti-infective into Peripheral Vein, Percutaneous Approach, New Technology Group 5 (ICD-10-PCS; principal; 2021-01-30)
PROC: XW13325 Transfusion of Convalescent Plasma (Nonautologous) into Peripheral Vein, Percutaneous Approach, New Technology Group 5 (ICD-10-PCS; principal; 2021-01-30)
DX: U07.1 COVID-19 (principal); J12.82 Pneumonia due to coronavirus disease 2019; J96.01 Acute respiratory failure with hypoxia; E87.1 Hypo-osmolality and hyponatremia; A08.39 Other viral enteritis; E11.65 Type 2 diabetes mellitus with hyperglycemia; I10 Essential (primary) hypertension; E66.9 Obesity, unspecified; E86.0 Dehydration; E86.1 Hypovolemia; E78.5 Hyperlipidemia, unspecified; K21.9 Gastro-esophageal reflux disease without esophagitis; Z86.010 Personal history of colon polyps; Z88.8 Allergy status to other drugs, medicaments and biological substances; Z79.84 Long term (current) use of oral hypoglycemic drugs; Z79.899 Other long term (current) drug therapy; Z68.36 Body mass index [BMI] 36.0-36.9, adult; Z87.891 Personal history of nicotine dependence; Z79.52 Long term (current) use of systemic steroids
CPT/HCPCS: 36415; 71045; 71275; 80048; 80053; 83605; 83615; 83690; 83735; 85025; 85379; 85610; 85730; 86140; 86850; 86900; 86901; 87040; 93005; 94760; 96374; 96375; 99291

== ENCOUNTER → 2021-10-22 | Outpatient (CLI) | payer OTHER ==
[2021-10-22 12:18] LABS: HCT 40.4 % (39.0-53.0); HGB 13.7 gm/dL (13.0-17.5); MCH 33.3 pg (25.0-35.0); Mean Platelet Volume 9.3; Platelet Count 230 k/uL (150-450); RBC 4.13 m/uL (4.30-5.90); RDW 13.1 % (11.5-15.5); WBC 4.4 k/uL (3.8-10.6)
[2021-10-22 12:40] LABS: INR 0.9 (<1.2); Prothrombin Time 9.5 sec (9.0-12.0)
[2021-10-22 12:41] LABS: Partial Thromboplastin Time 25.2 sec (22.0-30.0)
[2021-10-22 12:43] LABS: ALT 21 U/L (4-49); AST 21 U/L (17-59); African American GFR (CKD) >90 (>60 ml/min/1.73 sqM); Albumin 4.5 g/dL (3.5-5.0); Alkaline Phosphatase 87 U/L (38-126); Anion Gap 9 mmol/L; Blood Urea Nitrogen 20 mg/dL (9-20); Calcium 9.8 mg/dL (8.4-10.2); Carbon Dioxide 27 mmol/L (22-30); Chloride 102 mmol/L (98-107); Glucose 167 mg/dL (74-99); Non-African American GFR(CKD) >90 (>60 ml/min/1.73 sqM); Potassium 4.4 mmol/L (3.5-5.1); Sodium 138 mmol/L (137-145); Total Bilirubin 0.8 mg/dL (0.2-1.3); Total Protein 7.5 g/dL (6.3-8.2)
[2021-10-22 12:52] LABS: Appearance,Urine Clear (Clear); Bilirubin,Urine Negative (Negative); Blood,Urine Negative (Negative); Color,Urine Yellow; Glucose,Urine (UA) 1+ (Negative); Ketones,Urine Negative (Negative); Leukocyte Esterase,Urine Negative (Negative); Nitrite,Urine Negative (Negative); PH, Urine 5.5 (5.0-8.0); Protein,Urine Trace (Negative); Specific Gravity,Urine 1.026 (1.001-1.035); Urobilinogen,Urine <2.0 mg/dL (<2.0)
== END | disposition home or self-care (01) ==
LOC: LABPAT 10:45
PROVIDERS: ATTEND Orthopaedic Surgery
DX: Z01.812 Encounter for preprocedural laboratory examination (principal); M16.12 Unilateral primary osteoarthritis, left hip
CPT/HCPCS: 36415; 80053; 81003; 83036; 85027; 85610; 85730; 87070

== ENCOUNTER → 2022-01-15 | Outpatient (CLI) | payer OTHER ==
--- NOTE | 2022-01-16 06:29 | ECHOF ---
Referral Reason:R07.9 CHEST PAIN MEASUREMENTS -------- HEIGHT: 154.9 cm WEIGHT: 76.2 kg BP: RVIDd: 3.3 cm (< 3.3) IVSd: 1.4 cm (0.6 - 1.1) LVIDd: 2.8 cm (3.9 - 5.3) LVPWd: 1.1 cm (0.6 - 1.1) IVSs: 1.6 cm LVIDs: 1.5 cm LVPWs: 1.4 cm LAESV Index (A-L): 31.23 ml/m Ao Diam: 3.3 cm (2.0 - 3.7) AV Cusp: 1.6 cm (1.5 - 2.6) LA Diam: 3.6 cm (2.7 - 3.8) MV EXCURSION: 14.924 mm (> 18.000) MV EF SLOPE: 97 mm/s (70 - 150) EPSS: 0.7 cm MV E Yanick: 0.94 m/s MV DecT: 221 ms MV A Yanick: 0.64 m/s MV E/A Ratio: 1.45 RAP: 5.00 mmHg RVSP: 33.21 mmHg FINDINGS -------- Sinus rhythm. This was a technically adequate study. The left ventricular size is normal. There is moderate concentric left ventricular hypertrophy. O verall left ventricular systolic function is normal with, an EF between 55 - 60 %. The diastolic fi lling pattern is normal for the age of the patient {E/E'}. The right ventricle is mildly enlarged. Normal LA size by volume 22+/-6 ml/m2. The right atrium was not well visualized. Interatrial and interventricular septum intact. The aortic valve is trileaflet, and appears structurally normal. No aortic stenosis or regurgitation. The mitral valve is normal. There is trace mitral regurgitation. The tricuspid valve appears structurally normal. Mild tricuspid regurgitation present. Right vent ricular systolic pressure is normal at < 35 mmHg. The right ventricular systolic pressure, as measu red by Doppler, is 33.21mmHg. There is no pulmonic regurgitation present. The aortic root size is normal. IVC Not well visulized. There is no pericardial effusion. CONCLUSIONS -------- 1. There is moderate concentric left ventricular hypertrophy. 2. Overall left ventricular systolic function is normal with, an EF between 55 - 60 %. 3. The diastolic filling pattern is normal for the age of the patient {E/E'} 4. The right ventricle is mildly enlarged. 5. The aortic valve is trileaflet, and appears structurally normal. No aortic stenosis or regurgitati on. 6. There is trace mitral regurgitation. 7. Mild tricuspid regurgitation present. GLOVE TURNER: Liane Jaramillo RDCS
== END | disposition home or self-care (01) ==
LOC: RADECHMAIN 15:40
PROVIDERS: ATTEND Internal Medicine
DX: I08.1 Rheumatic disorders of both mitral and tricuspid valves (principal)
CPT/HCPCS: 93306

== ENCOUNTER → 2022-01-18 | Outpatient (CLI) | payer OTHER ==
[2022-01-18 15:33] LABS: Appearance,Urine Clear (Clear); Bilirubin,Urine Negative (Negative); Blood,Urine Negative (Negative); Color,Urine Yellow; Glucose,Urine (UA) Negative (Negative); Ketones,Urine Negative (Negative); Leukocyte Esterase,Urine Negative (Negative); Nitrite,Urine Negative (Negative); PH, Urine 6.5 (5.0-8.0); Protein,Urine Trace (Negative); Specific Gravity,Urine 1.029 (1.001-1.035); Urobilinogen,Urine <2.0 mg/dL (<2.0)
[2022-01-18 22:21] LABS: HGB 11.8 g/dL (13.0-17.0); MCH 32.2 pg (27.0-32.0); MCHC 31.9 g/dL (32.0-37.0); MCV 100.8 fL (80.0-97.0); NRBC Per 100 WBC 0 /100 WBCS (0.0-0.0); Platelet Count 225 X 10*3/uL (140-440); RBC 3.67 X 10*6/uL (4.40-5.60); RDW 12.6 % (11.5-14.5); WBC 6.39 X 10*3/uL (4.50-10.00)
[2022-01-18 22:32] LABS: African American GFR (CKD) 97.8 (60.0-200.0); Albumin 4.8 g/dL (3.8-4.9); Anion Gap 11.1 mmol/L (10.00-18.00); BUN/Creat Ratio 23.3 Ratio (12.00-20.00); Blood Urea Nitrogen 23.3 mg/dL (9.0-27.0); Calcium 9.8 mg/dL (8.7-10.3); Carbon Dioxide 24.9 mmol/L (20.0-27.5); Globulin 2.4 g/dL (1.6-3.3); Non-African American GFR(CKD) 84.4 (60.0-200.0); Potassium 4.8 mmol/L (3.5-5.5); Total Bilirubin 0.4 mg/dL (0.30-1.20); Total Protein 7.2 g/dL (6.2-8.2)
[2022-01-19 02:36] LABS: INR 0.9 (0.90-1.11); Partial Thromboplastin Time 28.9 sec (23.5-31.0); Prothrombin Time 10.2 sec (9.9-11.9)
== END | disposition home or self-care (01) ==
LOC: LABWHC1 14:58
PROVIDERS: ATTEND Orthopaedic Surgery
DX: Z01.812 Encounter for preprocedural laboratory examination (principal)
CPT/HCPCS: 36415; 80053; 81003; 85027; 85610; 85730; 87070

== ENCOUNTER 2022-01-21 07:45 | Day surgery (SDC) | payer OTHER ==
[2022-01-20 09:01] VITALS: BMI 33.0
[~2022-01-21 07:45] MED LIST changes: +ALPRAZolam 0.25 MG TAB PO PRN; +ALPRAZolam 0.5 MG TAB PO PRN; +ASPIRIN 325 MG TAB PO ONE; +HEPARIN SODIUM,PORCINE 10,000 UNIT in SODIUM CHLORIDE 0.9% 1,000 ML IRRIGATION PRN; +HEPARIN SODIUM,PORCINE 2,500 UNIT in SODIUM CHLORIDE 0.9% 250 ML IRRIGATION PRN; -LACTATED RINGERS 1,000 ML IV SCH; +NITROGLYCERIN SL TABS 0.4 MG TAB SUBLINGUAL PRN; +SODIUM CHLORIDE 0.9% 1,000 ML in EMPTY BAG 1 BAG IV SCH
[2022-01-21] MEDS ORDERED: SODIUM CHLORIDE 0.9% 1,000 ML IV ONE (07:55)
[2022-01-21 08:18] LABS: Glucose,Whole Blood 174 mg/dL (75-99)
[2022-01-21 08:36] VITALS: TEMP 98.5
[2022-01-21] MEDS ORDERED: LIDOCAINE 1% INJ 10MG/ML (20 ML MDV) ONE (09:06)
[2022-01-21] MEDS ORDERED: VERAPAMIL 2.5 MG/ML 2 ML AMP ONE (09:07)
[2022-01-21] MEDS ORDERED: fentaNYL (PF) 50 MCG/ML 2 ML AMP ONE (09:14)
[2022-01-21] MEDS ORDERED: fentaNYL (PF) 50 MCG/ML 2 ML AMP IV ONE (09:40)
[2022-01-21] MEDS ORDERED: MIDAZOLAM 2 MG/2 ML VIAL IV ONE (09:42)
[2022-01-21] MEDS ORDERED: LIDOCAINE 1% INJ 10MG/ML (20 ML MDV) SQ ONE ×2 (09:43→09:44)
[2022-01-21] MEDS: VERAPAMIL SYRINGE (5 MG/10 ML) INTRAARTER ONE ×2 (09:47→10:10)
[2022-01-21] MEDS ORDERED: IOPAMIDOL-370 125ML BTL INJ ONE (10:08)
[2022-01-21] MEDS ORDERED: ACETAMINOPHEN TAB 325 MG TAB ONE (11:00)
[2022-01-21 14:40] VITALS: RESP 16
[2022-01-21 14:46] VITALS: BP 106/59; PULSE 74
[2022-01-21 15:25] LABS: Glucose,Whole Blood 177 mg/dL (75-99)
--- NOTE | 2022-01-21 21:35 | P.CARDCATH ---
Description of Procedure: PROCEDURES PERFORMED: Left heart catheterization, bilateral coronary angiography INDICATION: Chest pain concerning for angina, preop clearance, DM2 CONSENT:I have discussed the risks, benefits and alternative therapies for the above-mentioned procedure and for both sedation/analgesia as well as necessary blood product administration, if indicated, as they pertain to this patient. The patient has indicated understanding and acceptance of the risks and procedures discussed. PROCEDURE: After the risks, benefits and alternatives of the above mentioned procedure explained in detail with the patient, informed consent was obtained. Patient was taken to the catheterization lab and prepped and draped in usual fashion. 1% lidocaine was used to anesthetize the right radial artery. A 6- Tamazight sheath was placed in the right radial artery using modified Seldinger technique. Left coronary angiography was performed with a 5-Tamazight JL 3.5 catheter and right coronary angiography was performed with a 6-Tamazight AR2 catheter in various views. A 5-Tamazight FR5 catheter was inserted into the left ventricle and pressure measurements were obtained. The right radial sheath was removed and a TR band was placed with hemostasis achieved. The patient tolerated the procedure well. Patient was transported back to the post catheterization holding area in stable condition. Conscious Sedation: Patient was monitored under the direct supervision of vision of myself for conscious sedation using Versed and fentanyl for a total duration of 25 minutes HEMODYNAMICS: Ao: 103/78 LV: 104/9, LVEDP 17mmHg SELECTIVE CORONARY ARTERIOGRAPHY: LEFT MAIN: The left main is a large caliber vessel which bifurcates into the LAD and circumflex. There is no significant stenosis. LEFT ANTERIOR DESCENDING CORONARY ARTERY: LAD is a large caliber vessel which wraps around to the apex. There is no significant stenosis. There is MARYANN 2 flow noted in the LAD which may relate to microvascular dysfunction. LEFT CIRCUMFLEX CORONARY ARTERY: Left circumflex is a moderate caliber vessel without significant stenosis. RIGHT CORONARY ARTERY: The right coronary artery is a large caliber vessel which gives off a PDA and PLV branch and is the dominant vessel. There is no significant stenosis. FINAL IMPRESSION: 1. Normal coronary arteries as described above. 2. MARYANN 2 flow noted in LAD which may relate to microvascular dysfunction 3. Mildly elevated left sided filling pressures PLAN: 1. Aggressive risk factor modification per most recent ACC/AHA guidelines. 2. Monitor response of antianginals as patient may have microvascular dysfunction. 3. Follow-up in the office in 1-2 weeks.
== END 2022-01-21 15:22 | disposition home or self-care (01) ==
LOC: CATHCVL 07:45
PROVIDERS: ATTEND Internal Medicine
DX: R07.9 Chest pain, unspecified (principal); I10 Essential (primary) hypertension; E78.5 Hyperlipidemia, unspecified; E11.9 Type 2 diabetes mellitus without complications; Z72.0 Tobacco use; Z20.822 Contact with and (suspected) exposure to COVID-19; Z79.84 Long term (current) use of oral hypoglycemic drugs; Z79.899 Other long term (current) drug therapy
CPT/HCPCS: 93458; 87635; C1894; J2250; J2001; J3010; J1644; Q9967

== ENCOUNTER 2022-01-29 09:13 | Observation (INO) | payer OTHER ==
[2022-01-27 14:51] VITALS: BMI 32.1
[~2022-01-29 09:13] MED LIST changes: +ACETAMINOPHEN TAB 500 MG TAB PO PRN; -ALPRAZolam 0.25 MG TAB PO PRN; -ALPRAZolam 0.5 MG TAB PO PRN; -ASPIRIN 325 MG TAB PO ONE; +DEXAMETHASONE SOD PHOSPHATE 10 MG/ML 1 ML VIAL IV PRN; +DEXAMETHASONE SOD PHOSPHATE 4 MG/ML 1 ML VIAL IV ONE; +DOCUSATE 100 MG CAP PO PRN; -HEPARIN SODIUM,PORCINE 10,000 UNIT in SODIUM CHLORIDE 0.9% 1,000 ML IRRIGATION PRN; -HEPARIN SODIUM,PORCINE 2,500 UNIT in SODIUM CHLORIDE 0.9% 250 ML IRRIGATION PRN; +HYDROmorphone 0.5 MG/0.5 ML SYRINGE IVP PRN; +KETOROLAC 15 MG/ML 1 ML VIAL IVP PRN; +LIDOCAINE 1% (10MG/ML) FOR IV START INTRADERMA PRN; +MIDAZOLAM 2 MG/2 ML VIAL IV PRN; -NITROGLYCERIN SL TABS 0.4 MG TAB SUBLINGUAL PRN; +ONDANSETRON 4 MG/2 ML VIAL IVP ONE; +ONDANSETRON 4 MG/2 ML VIAL IVP PRN; -SODIUM CHLORIDE 0.9% 1,000 ML in EMPTY BAG 1 BAG IV SCH; +TRANEXAMIC ACID IN NACL,ISO-OS 1,000 MG in SALINE 1 100ML.BAG IVPB PRN; +oxyCODONE ER 10 MG TAB.ER.12H PO PRN
[2022-01-29 09:52] LABS: Glucose,Whole Blood 183 mg/dL (75-99)
[2022-01-29] MEDS: LACTATED RINGERS 1,000 ML IV SCH (09:59)
[2022-01-29] MEDS: FAMOTIDINE 20 MG/2 ML VIAL IVP PRN ×2 (10:02→10:05)
[2022-01-29] MEDS ORDERED: MIDAZOLAM 2 MG/2 ML VIAL ONE (11:09)
[2022-01-29] MEDS ORDERED: NEOSTIGMINE 1 MG/ML 10 ML VIAL ONE (11:09)
[2022-01-29] MEDS ORDERED: ROCURONIUM 10 MG/ML (5 ML VIAL) IV ONE (11:09)
[2022-01-29] MEDS ORDERED: fentaNYL (PF) 50 MCG/ML 2 ML AMP ONE (11:09)
[2022-01-29] MEDS ORDERED: GLYCOPYRROLATE 0.2 MG/ML 2 ML VIAL ONE (11:09)
[2022-01-29] MEDS ORDERED: TRANEXAMIC ACID IN NACL,ISO-OS 1,000 MG/100 ML BAG ONE (11:09)
[2022-01-29] MEDS ORDERED: SUCCINYLCHOLINE CHLORIDE 100 MG/5 ML SYR IV ONE (11:09)
[2022-01-29] MEDS ORDERED: PROPOFOL 10 MG/ML 20 ML VIAL IV ONE (11:09)
[2022-01-29] MEDS ORDERED: HYDROmorphone (PF) 1 MG/ML ONE (11:09)
[2022-01-29] MEDS: ROPIVACAINE/EPI/CLONIDINE/KET 50 ML SYRINGE MISCELLANE PRN ×2 (12:15→12:37)
[2022-01-29] MEDS ORDERED: LACTATED RINGERS 1,000 ML IV ONE ×2 (13:00→14:51)
--- NOTE | 2022-01-29 13:32 | P.OP ---
Date of Procedure: 01/29/22 Preoperative Diagnosis: 1. Severe left hip osteoarthritis 2. Type 2 diabetes with preoperative hemoglobin A1c less than 8 3. Coronary artery disease status post stent Postoperative Diagnosis: Same Procedure(s) Performed: Left direct anterior total hip arthroplasty Implants: 1. Jayy Trident II Size 50-cup 2. Creede Accolade II Size #4 127-deg femoral stem 3. Biolox Delta 36-mm, -5 head Anesthesia: GETA Surgeon: Jose Antonio Gupta Franchise Consultant #1: Leandra Yañez Estimated Blood Loss (ml): 200 IV fluids (ml): 1,200 Pathology: none sent Condition: stable Disposition: PACU Indications for Procedure: I had a long discussion with the patient in the office on the potential risks and complications of an elective total hip replacement through a direct anterior approach. Risks discussed include, but are certainly not limited to, risks from anesthesia, superficial infection requiring local wound care or antibiotics, deep vasu-prosthetic joint infection and the treatment required to eradicate in fection, intraoperative fracture, postoperative periprosthetic fracture, damage to local blood vessels or nerves particularly the lateral femoral cutaneous nerve, delayed wound healing requiring local wound care or possibly surgical debridement, hip dislocation, leg length discrepancy, soft tissue irritation around the total hip implant such as iliopsoas tendinitis or trochanteric bursitis, wear and osteolysis from the implants, squeaking or audible noises, groin pain, thigh pain, heterotopic ossification, stiffness, aseptic loosening of the implants, dissatisfaction with surgical outcome, need for revision surgery, DVT, PE, swelling of the operative extremity, acute coronary event, stroke, failure to thrive, and possibly loss of life or limb. The patient understands that while these are the most common complications after an elective hip replacement there are certainly other less common complications possible. They were given ample time to ask questions regarding the potential compl ications of a hip replacement. Following our discussion the patient provided their verbal and written consent to go forward with an elective total hip replacement. Operative Findings: Severe left hip osteoarthritis Description of Procedure: The patient was identified in the preoperative holding area and the correct hip was marked with my initials. I reviewed the procedure and consent with the patient. All of their questions were answered. The patient was then brought back into the operating room by anesthesia. While on the [facility] anesthesia was administered by the anesthesia team. Preoperative antibiotics and tranexamic acid were also given. After the patient was under anesthesia I examined their ankles to determine their preoperative leg length discrepancy. The skin over the anterior aspect of the hip was shaved to remove hair over the site of planned incision. Both feet and ankles were padded with webril and boots for the [place] were applied. The patient was then carefully transferred onto the [place] table. A perineal post was immediately placed. The arms were placed on arm holders and were well-padded. Both boots were secured to the spars on the [place] table. The patient was positioned so that the pelvis was centered over the post. Nonsterile drapes were applied. A timeout was performed identifying the correct patient, operative extremity, and procedure. At this point fluoroscopy was brought in to take preoperative images of the pelvis and operative hip. Using the standing AP pelvis from the office as a template, a comparable image was obtained with fluoroscopy. A metallic bar was used to create a bi-ischial line for use as a reference to leg length adjustments during the procedure. Global offset was also measured on both the operative and nonoperative leg. Fluoroscopy was then brought out and a pre-scrub using a chlorhexidine scrub brush was performed. The operative limb was then prepped and draped in the standard sterile fashion. An anterior longitudinal incision was made lateral and distal to the ASIS. The skin and subcutaneous tissues were incised sharply. The underlying tensor fascia was identified and incised in its midportion. The fascia was dissected free from the underlying muscle and the muscle belly was retracted. A blunt tipped cobra retractor was placed over the superior neck under the muscle fibers of the gluteus minimus. The deep enveloping fascia of the tensor was incised. The anterior leash of vessels were then identified and cauterized. The fascia between the rectus and the capsule was then incised and the pre-capsular fat was excised. A second Cobra was placed inferior to the neck. The interval between the rectus and iliocapsularis and the hip capsule was developed and a retractor was placed carefully over the anterior rim of the acetabulum. A T-shaped anterior capsulotomy was performed. The superior capsular leaflet was left in place in the inferior capsular flap was excised. The Cobra retractors were placed intracapsularly. We then made a femoral neck osteotomy according to preoperative and intraoperative templating and confirmed the level of the osteotomy using fluoroscopic imaging. The femoral head was removed, passed off to the back table, and sized. The superior capsular flap was excised. Retractors were placed circumferentially exposing the acetabulum. We then circumferentially debrided the acetabulum free of labrum and osteophytes. The pulvinar was removed to fully visualize the cotyloid fossa. We then sequentially reamed to achieve peripheral fit and excellent bleeding subchondral bone. The socket was thoroughly irrigated. The acetabular component was impacted into the appropriate position using fluoroscopy to guide version, inclination, and depth of insertion taking care to have a comparable image of the AP pelvis to the standing image taken in the office. An excellent press-fit was achieved and final position was confirmed using fluoroscopy. The press fit was augmented with bony cancellus dome screws. The liner was then impacted into the socket. Attention was then turned to the femur. The remnant dorsal lateral capsule was excised. The short external rotators were visible and protected. A bone hook was used to confirm appropriate translation of the trochanter away from the acetabulum. The leg was then extended and adducted and the bone hook was used to elevate the femur for broaching. A box osteotome and blunt tipped canal sound was then utilized to gain access to the femoral canal. We then sequentially broached the femur in appropriate anteversion until excellent torsional stability was achieved. The neck cut was brought flush to the trial broach with a calcar planar. A trial neck and head were then placed onto the broach and the hip was atraumatically reduced under direct visualization. External rotation to 90 was performed to assess stability. Fluoroscopy was brought in. An AP and lateral fluoroscopic image of the proximal femur was obtained to assess position and fill of the trial broach. An AP of the pelvis was then obtained and matched to the preoperative image taken. A bi-ischial bar was then placed and measurements were taken to assess changes in length and offset. The hip was then carefully dislocated, the proximal femur was exposed, and the trial implants were removed. The wound and proximal femur was thoroughly irrigated using sterile saline and pulsatile lavage. The final femoral implant was dispensed and gently tapped into place generating an excellent press-fit. The trunnion was cleansed and the final head was tapped into place to engage the Gann taper. The acetabulum was irrigated and visualized to be free of debris. The hip was carefully reduced. Stability was checked clinically with external rotation to 90 and there was no evidence of instability. Final fluoroscopic images were taken. The wound was then thoroughly irrigated and soaked with a dilute Betadine rinse for 3 minutes. 3 L of sterile saline was irrigated through the wound using pulsatile lavage. Local anesthetic cocktail was injected into the soft tissues around the surgical field. A deep drain was placed. The wound was then closed in layers. A sterile dressing was placed over the surgical incision and drain site. The drapes were taken down and the patient was carefully transferred off of the [place] table. Following removal of the boots the leg lengths felt acceptable. The patient was then taken to recovery room having tolerated the procedure well. Leandra Yañez PA-C was required as a skilled executive personal assistant for patient positioning, surgical exposure, retraction, placement of implants, and closure of the surgical wound. PLAN: The patient can weight-bear as tolerated on the operative extremity. 2 doses of postoperative antibiotics. DVT prophylaxis with aspirin 81 mg twice a day based on preoperative risk stratification. Physical therapy for gait training. Discontinue drain postoperative day #1 if output is less than 100 mL per shift.
--- NOTE | 2022-01-29 13:36 | XR ---
EXAMINATION TYPE: XR Hip Limited LT, FL guidance operating room DATE OF EXAM: 01/29/2022 CLINICAL HISTORY: Total left hip arthroplasty TECHNIQUE: Fluoroscopic-guided total left hip arthroplasty. COMPARISON: X-ray dated 06/19/2019 FINDINGS: Fluoroscopic guidance was provided during the procedure. A total of 28 seconds of fluorosc opic time was utilized during the procedure and 8 spot images were acquired. IMPRESSION: As Above.
[2022-01-29] MEDS ORDERED: HYDROmorphone 1 MG/ML 1 ML SYRINGE IVP PRN (13:52)
[2022-01-29] MEDS ORDERED: hydrOXYzine pamoate 25 MG CAP PO PRN (13:52)
[2022-01-29] MEDS ORDERED: HYDROmorphone 0.2 MG/1 ML SYRINGE IVP PRN (13:52)
[2022-01-29] MEDS ORDERED: HYDROcodone/APAP 5-325MG 1 EACH TAB PO PRN (13:52)
[2022-01-29] MEDS ORDERED: NALOXONE 0.4 MG/ML 1 ML VIAL IV PRN (13:52)
[2022-01-29] MEDS: HYDROmorphone 0.5 MG/0.5 ML SYRINGE IVP PRN ×2 (14:12→14:30)
[2022-01-29] MEDS: ONDANSETRON 4 MG/2 ML VIAL IVP PRN ×2 (15:49→20:19)
[2022-01-29] MEDS: ASPIRIN 81 MG PO SCH (20:19)
[2022-01-29] MEDS: HYDROcodone/APAP 5-325MG 1 EACH TAB PO PRN (20:21)
[2022-01-29] MEDS ORDERED: SENNOSIDES-DOCUSATE SODIUM 1 EACH TAB PO SCH (21:00)
[2022-01-29 22:45] LABS: Glucose,Whole Blood 267 mg/dL (75-99)
[2022-01-30] MEDS: HYDROmorphone 0.5 MG/0.5 ML SYRINGE IVP PRN (03:18)
[2022-01-30] MEDS: ONDANSETRON 4 MG/2 ML VIAL IVP PRN (04:55)
[2022-01-30] MEDS: LACTATED RINGERS 1,000 ML IV SCH (06:53)
[2022-01-30 07:18] LABS: Glucose,Whole Blood 207 mg/dL (75-99)
[2022-01-30 07:36] VITALS: BP 97/61; PULSE 100; RESP 17; TEMP 98.4
[2022-01-30] MEDS: INSULIN ASPART (NovoLOG) 100 UNIT/ML VIAL SQ SCH ×2 (08:25→12:17)
[2022-01-30] MEDS: ASPIRIN 81 MG PO SCH (08:25)
[2022-01-30] MEDS: HYDROcodone/APAP 5-325MG 1 EACH TAB PO PRN (08:25)
[2022-01-30 08:49] LABS: Basophils # (A) 0.01 X 10*3/uL (0.00-0.10); Basophils % (A) 0.1 %; Eosinophils # (A) 0 X 10*3/uL (0.04-0.35); Eosinophils % (A) 0 %; HCT 26.4 % (39.6-50.0); HGB 8.6 g/dL (13.0-17.0); Immature Grans, Automated 0.2 %; Lymphocytes # (A) 1.13 X 10*3/uL (0.90-5.00); Lymphocytes % (A) 13.4 %; MCH 32.2 pg (27.0-32.0); MCHC 32.6 g/dL (32.0-37.0); MCV 98.9 fL (80.0-97.0); Mean Platelet Volume 11.7 fL (9.5-12.2); Monocytes # (A) 0.65 X 10*3/uL (0.20-1.00); Monocytes % (A) 7.7 %; NRBC Per 100 WBC 0 /100 WBCS (0.0-0.0); Neutrophils # (A) 6.64 X 10*3/uL (1.80-7.70); Neutrophils % (A) 78.6 %; Platelet Count 193 X 10*3/uL (140-440); RBC 2.67 X 10*6/uL (4.40-5.60); RDW 12.9 % (11.5-14.5); WBC 8.45 X 10*3/uL (4.50-10.00)
--- NOTE | 2022-01-30 10:27 | P.DS ---
Providers Date of admission: 01/30/22 09:08 Attending physician: Jose Antonio Gupta Consults: 01/29/22 13:57 Consult Physician Routine Consulting Provider: Rika Valles Consult Reason/Comments: medical management Do you want consulting provider notified?: Yes Primary care physician: Yoshi Boswell - Discharge Diagnosis(es) (1) Osteoarthritis of left hip Current Visit: Yes Status: Acute (2) Status post total hip replacement, left Current Visit: Yes Status: Acute Hospital Course: This is a 56-year-old male with known history of degenerative arthritis of the left hip. The patient presented for evaluation as an outpatient. After discussion and consideration patient elects to proceed with total hip arthroplasty. The patient is seen preoperatively by Dr. Gupta and medically cleared for surgery by their primary care physician. Patient is admitted to [facility] on 01/29/2022 for total hip arthroplasty. The procedure is performed without complication or sequelae. The patient is doing well postoperatively. Labs and vital signs are stable on day of discharge. On day of discharge patient's hip incision is healing well. There is minimal erythema. There is no drainage noted at this time. There is minimal soft tissue swelling to the hip and thigh. Patient has full foot and ankle motion without difficulty or pain. Calf is soft and nontender to palpation. Neurovascular status to the left lower extremity is intact. Patient is discharged home in good condition. Please see [facility] rec for accurate list of home medications. Plan - Discharge Summary Discharge Rx Participant: Yes New Discharge Prescriptions: New Omeprazole 40 mg PO DAILY 30 Days #30 cap HYDROcodone/APAP 5-325MG [[place] 5-325] 1 - 2 tab PO Q6HR PRN 7 Days #40 tab PRN Reason: Pain Aspirin 81 mg PO BID 30 Days #60 tab Docusate [Colace] 100 mg PO BID #60 capsule Doxycycline Monohydrate 100 mg PO BID 14 Days #28 cap Diclofenac Sodium [Voltaren] 75 mg PO BID 30 Days #60 tab No Action Lovastatin [Mevacor] 40 mg PO DAILY glipiZIDE [Glucotrol] 10 mg PO DAILY Pioglitazone [Actos] 45 mg PO DAILY metFORMIN HCL [Glucophage] 1,000 mg PO BID Potassium Gluconate [Potassium Gluconate ER] 90 mg PO DAILY Semaglutide [Rybelsus] 7 mg PO DAILY lisinopriL [Zestril] 5 mg PO DAILY Baclofen 5 mg PO TID PRN PRN Reason: MUSCLE SPASM Ascorbic Acid [Vitamin C] 1,000 mg PO DAILY #60 tab Cholecalciferol [Vitamin D3 (25 Mcg = 1000 Iu)] 25 mcg PO DAILY #30 tablet traMADol HCL [Ultram] 50 mg PO Q6HR PRN PRN Reason: Pain Aspirin 81 mg PO ONCE Discharge Medication List Lovastatin [Mevacor] 40 mg PO DAILY 08/27/16 [History] Pioglitazone [Actos] 45 mg PO DAILY 11/28/20 [History] glipiZIDE [Glucotrol] 10 mg PO DAILY 11/28/20 [History] metFORMIN HCL [Glucophage] 1,000 mg PO BID 01/28/21 [History] Ascorbic Acid [Vitamin C] 1,000 mg PO DAILY #60 tab 02/02/21 [Rx] Cholecalciferol [Vitamin D3 (25 Mcg = 1000 Iu)] 25 mcg PO DAILY #30 tablet 02/02/21 [Rx] Potassium Gluconate [Potassium Gluconate ER] 90 mg PO DAILY 01/20/22 [History] Semaglutide [Rybelsus] 7 mg PO DAILY 01/20/22 [History] traMADol HCL [Ultram] 50 mg PO Q6HR PRN 01/20/22 [History] Aspirin 81 mg PO ONCE 01/21/22 [History] Baclofen 5 mg PO TID PRN 01/27/22 [History] lisinopriL [Zestril] 5 mg PO DAILY 01/27/22 [History] Aspirin 81 mg PO BID 30 Days #60 tab 01/29/22 [Rx] Diclofenac Sodium [Voltaren] 75 mg PO BID 30 Days #60 tab 01/29/22 [Rx] Docusate [Colace] 100 mg PO BID #60 capsule 01/29/22 [Rx] Doxycycline Monohydrate 100 mg PO BID 14 Days #28 cap 01/29/22 [Rx] HYDROcodone/APAP 5-325MG [[place] 5-325] 1 - 2 tab PO Q6HR PRN 7 Days #40 tab 01/29/22 [Rx] Omeprazole 40 mg PO DAILY 30 Days #30 cap 01/29/22 [Rx] Follow up Appointment(s)/Referral(s): [facility] [NON-STAFF] - As Needed (isabella) [facility], [NON-STAFF] - ([facility] will call you to schedule your in home physical therapy visits. ) Jose Antonio Gupta MD [Medical Doctor] - 2 Weeks Patient Instructions/Handouts: Total Hip Replacement (DC) Activity/Diet/Wound Care/Special Instructions: Weight bear as tolerated on operative leg with a walker. Keep operative dressing intact until follow-up appointment. Take pain medications as prescribed. Take aspirin 81mg BID x 4 weeks for DVT prophylaxis. Follow-up in the office in [address] Gupta. Call the office with any questions or concerns, Discharge Disposition: HOME WITH HOME HEALTH SERVICES
[2022-01-30 11:36] LABS: Glucose,Whole Blood 198 mg/dL (75-99)
== END 2022-01-30 13:38 | disposition home health service (06) ==
LOC: OR 09:13 → 4SSUR 13:59 → OR 01-30 09:08 → 4SSUR 01-30 09:08
PROVIDERS: ADMIT Orthopaedic Surgery; ATTEND Orthopaedic Surgery
DX: M16.12 Unilateral primary osteoarthritis, left hip (principal); E11.9 Type 2 diabetes mellitus without complications; I25.10 Atherosclerotic heart disease of native coronary artery without angina pectoris; G47.33 Obstructive sleep apnea (adult) (pediatric); K21.9 Gastro-esophageal reflux disease without esophagitis; F17.210 Nicotine dependence, cigarettes, uncomplicated; Z79.84 Long term (current) use of oral hypoglycemic drugs; Z79.899 Other long term (current) drug therapy; Z95.5 Presence of coronary angioplasty implant and graft; Z97.3 Presence of spectacles and contact lenses; Z98.890 Other specified postprocedural states; Z83.3 Family history of diabetes mellitus; Z82.49 Family history of ischemic heart disease and other diseases of the circulatory system
CPT/HCPCS: 27130; 97116; 97161; 86900; 86901; 85025; 86850; 88300; 73501; G0378; C1776; J2250; J1100; J2710; J0690 ×2; J2405 ×2; J3010; J1170 ×3; J1885; J0330; J2704

== ENCOUNTER → 2023-01-10 | Outpatient (CLI) | payer OTHER ==
--- NOTE | 2023-01-10 10:12 | XR ---
EXAMINATION TYPE: XR shoulder complete LT DATE OF EXAM: 01/10/2023 Comparison: None Clinical History: 57-year-old male [id number] LT SHLD PAIN Findings: Mild degenerative change AC joint. Subacromial space is preserved. No tendinous or bursal calcificati ons. Coronary old healed left-sided rib fracture deformities. No acute fracture, subluxation, disloca tion seen. Visualized left hemithorax appears clear. Impression: Mild AC joint joint. No acute osseous abnormality seen.
== END | disposition home or self-care (01) ==
LOC: RADXRYALE 08:37
PROVIDERS: ATTEND Physician Assistant
DX: M19.012 Primary osteoarthritis, left shoulder (principal)

== ENCOUNTER 2023-10-07 18:24 | Emergency (ER) | payer OTHER ==
[2023-10-07 19:04] VITALS: TEMP 97.8
[2023-10-07 19:52] LABS: Glucose,Whole Blood 210 mg/dL (70-110)
[2023-10-07 20:02] LABS: Basophils % (A) 1 %; Eosinophils % (A) 1 %; HCT 43.6 % (39.0-53.0); HGB 14.8 gm/dL (13.0-17.5); Lymphocytes # (A) 1.7 k/uL (1.0-4.8); Lymphocytes % (A) 28 %; MCHC 33.9 g/dL (31.0-37.0); MCV 94.4 fL (80.0-100.0); Mean Platelet Volume 10.1; Monocytes # (A) 0.2 k/uL (0-1.0); Monocytes % (A) 4 %; Neutrophils # (A) 3.9 k/uL (1.3-7.7); Neutrophils % (A) 65 %; Platelet Count 203 k/uL (150-450); RBC 4.62 m/uL (4.30-5.90); RDW 13.6 % (11.5-15.5)
--- NOTE | 2023-10-07 20:11 | ED ---
Recheck HPI - General Chief Complaint: Recheck/Abnormal Lab/Rx Stated Complaint: High Blood Sugar Time Seen by Provider: 10/07/23 19:43 Source: patient, RN notes reviewed Mode of arrival: ambulatory Limitations: no limitations - History of Present Illness Initial Comments: This is a 58-year-old male who presents to the emergency department for elevated blood sugar. Reports a history of type 2 diabetes mellitus for several years. Not taking any insulin. States that his sugars are usually in the mid 100s range, however they've been increasing over the last couple of days. States that today his sugar was around 400. He checks his sugar twice daily. He otherwise feels asymptomatic and has no concerns other than the high blood sugar. He is taking all medications as prescribed. MD Complaint: abnormal lab - Related Data Home Medications Medication Instructions Recorded Confirmed Lovastatin [Mevacor] 40 mg PO DAILY 08/27/16 01/27/22 Pioglitazone [Actos] 45 mg PO DAILY 11/28/20 01/27/22 glipiZIDE [Glucotrol] 10 mg PO DAILY 11/28/20 01/27/22 metFORMIN HCL [Glucophage] 1,000 mg PO BID 01/28/21 01/27/22 Potassium Gluconate [Potassium 90 mg PO DAILY 01/20/22 01/27/22 Gluconate ER] Semaglutide [Rybelsus] 7 mg PO DAILY 01/20/22 01/27/22 traMADol HCL [Ultram] 50 mg PO Q6HR PRN 01/20/22 01/27/22 Aspirin 81 mg PO ONCE 01/21/22 01/27/22 Baclofen 5 mg PO TID PRN 01/27/22 01/27/22 lisinopriL [Zestril] 5 mg PO DAILY 01/27/22 01/27/22 Previous Rx's Medication Instructions Recorded Ascorbic Acid [Vitamin C] 1,000 mg PO DAILY #60 tab 02/02/21 Cholecalciferol [Vitamin D3 (25 25 mcg PO DAILY #30 tablet 02/02/21 Mcg = 1000 Iu)] Aspirin 81 mg PO BID 30 Days #60 tab 01/29/22 Diclofenac Sodium [Voltaren] 75 mg PO BID 30 Days #60 tab 01/29/22 Docusate [Colace] 100 mg PO BID #60 capsule 01/29/22 Doxycycline Monohydrate 100 mg PO BID 14 Days #28 cap 01/29/22 HYDROcodone/APAP 5-325MG [[place] 1 - 2 tab PO Q6HR PRN 7 Days #40 01/29/22 5-325] tab Omeprazole 40 mg PO DAILY 30 Days #30 cap 01/29/22 Allergies Allergy/AdvReac Type Severity Reaction Status Date / Time atorvastatin AdvReac Abdominal Verified 10/07/23 18:51 Pain/heartburn Review of Systems ROS Statement: Those systems with pertinent positive or pertinent negative responses have been documented in the HPI. ROS Other: All systems not noted in ROS Statement are negative. Past Medical History Past Medical History: Diabetes Mellitus, Hyperlipidemia, Hypertension Additional Past Medical History / Comment(s): hx of colon polyps, History of Any Multi-Drug Resistant Organisms: None Reported Past Surgical History: Heart Catheterization Additional Past Surgical History / Comment(s): colonoscopy, Past Anesthesia/Blood Transfusion Reactions: No Reported Reaction Past Psychological History: No Psychological Hx Reported Smoking Status: Never smoker Past Alcohol Use History: None Reported Past Drug Use History: Marijuana - Past Family History Mother Family Medical History: Cancer General Exam Limitations: no limitations General appearance: alert, in no apparent distress Head exam: Present: atraumatic, normocephalic, normal inspection Respiratory exam: Present: normal lung sounds bilaterally. Absent: respiratory distress, wheezes, rales, rhonchi, stridor Cardiovascular Exam: Present: regular rate, normal rhythm, normal heart sounds. Absent: systolic murmur, diastolic murmur, rubs, gallop, clicks Neurological exam: Present: alert, oriented X3, CN II-XII intact Psychiatric exam: Present: normal affect, normal mood Skin exam: Present: warm, dry, intact, normal color. Absent: rash Course Vital Signs 10/07/23 10/07/23 18:49 20:40 Temperature 97.8 F Pulse Rate 76 89 Respiratory 17 18 Rate Blood Pressure 109/73 116/89 O2 Sat by Pulse 98 98 Oximetry Medical Decision Making - Medical Decision Making This is a 58-year-old male who presents to the emergency department for elevated blood sugar. Was pt. sent in by a medical professional or institution? @ -No Did you speak to anyone other than the patient for history? @ -No Did you review nursing and triage notes? @ -Yes, and I agree, it is accurate with regards to the patient's symptoms. Were old charts reviewed? @ -No Differential Diagnosis? @ -Differential Hyperglycemia: DKA, poorly controlled DM, dietary intake, medications, this is not meant to be an all-inclusive list. EKG interpreted by me (3pts min.)? @ -Not obtained X-rays interpreted by me (1pt min.)? @ -Not obtained CT interpreted by me (1pt min.)? @ -Not obtained U/S interpreted by me (1pt. min.)? @ -Not obtained What testing was considered but not performed? (CT, X-rays, U/S, labs)? Why? @ -None What meds were considered but not given? Why? @ -None Did you discuss the management of the patient with other professionals? @ -No Did you reconcile home meds? @ -No Was smoking cessation discussed for >3mins.? @ -No Was critical care preformed (if so, how long)? @ -No Were there social determinants of health that impacted care today? How? (Homelessness, low income, unemployed, alcoholism, drug addiction, transportation, low edu. Level, literacy, decrease access to med. care, long term, rehab)? @ -No Was there de-escalation of care discussed even if they declined? (Discuss DNR or withdrawal of care, Hospice)? @ -No What co-morbidities impacted this encounter? (DM, HTN, Smoking, COPD, CAD, Cancer, CVA, Hep., AIDS, mental health diagnosis, sleep apnea, morbid obesity)? @ -DM, HLD, HTN Was patient admitted / discharged? @ -Discharged. Lab work demonstrates a blood sugar of 233, much lower than with the patient had noted earlier today. Discussed that it is possible that this has simply decreased on his own, or his glucometer is not entirely accurate. Advise he continue to take his medication as prescribed and bring his glucometer with him to his next appointment with his primary care provider to have it calibrated. Patient otherwise discharged home in stable condition. Undiagnosed new problem with uncertain prognosis? @ -None Drug Therapy requiring intensive monitoring for toxicity (Heparin, Nitro, Insulin, Cardizem)? @ -None Were any procedures done? @ -None Diagnosis/symptom? @ -Diabetes mellitus Acute, or Chronic, or Acute on Chronic? @ -Chronic Uncomplicated (without systemic symptoms) or Complicated (systemic symptoms)? @ -Uncomplicated Side effects of treatment? @ -None Exacerbation, Progression, or Severe Exacerbation] @ -Stable Poses a threat to life or bodily function? @ -Not at this time Return precautions reviewed in depth, the patient is instructed to return to the emergency department with any new, worsening, or concerning symptoms. Patient verbalized understanding. This case was discussed in detail with the attending ED physician, Dr. Odom. Presentation, findings, and treatment plan discussed in detail as well. - Lab Data Result diagrams: 10/07/23 19:53 10/07/23 19:53 Lab Results 10/07/23 10/07/23 10/07/23 Range/Units 19:51 19:53 19:53 WBC 6.0 (3.8-10.6) k/uL RBC 4.62 (4.30-5.90) m/uL Hgb 14.8 (13.0-17.5) gm/dL Hct 43.6 (39.0-53.0) % MCV 94.4 (80.0-100.0) fL MCH 32.0 (25.0-35.0) pg MCHC 33.9 (31.0-37.0) g/dL RDW 13.6 (11.5-15.5) % Plt Count 203 (150-450) k/uL MPV 10.1 Neutrophils % 65 % Lymphocytes % 28 % Monocytes % 4 % Eosinophils % 1 % Basophils % 1 % Neutrophils # 3.9 (1.3-7.7) k/uL Lymphocytes # 1.7 (1.0-4.8) k/uL Monocytes # 0.2 (0-1.0) k/uL Eosinophils # 0.0 (0-0.7) k/uL Basophils # 0.0 (0-0.2) k/uL Sodium 140 (137-145) mmol/L Potassium 4.5 (3.5-5.1) mmol/L Chloride 102 (98-107) mmol/L Carbon Dioxide 24 (22-30) mmol/L Anion Gap 14 mmol/L BUN 18 (9-20) mg/dL Creatinine 0.87 (0.66-1.25) mg/dL Est GFR (CKD-EPI)AfAm >90 (>60 ml/min/1.73 sqM) Est GFR (CKD-EPI)NonAf >90 (>60 ml/min/1.73 sqM) Glucose 223 H (74-99) mg/dL POC Glucose (mg/dL) 210 H (70-110) mg/dL POC Glu [employer] Vince Falk Calcium 9.7 (8.4-10.2) mg/dL Phosphorus 3.3 (2.5-4.5) mg/dL Magnesium 1.7 (1.6-2.3) mg/dL Total Bilirubin 0.9 (0.2-1.3) mg/dL AST 26 (17-59) U/L ALT 28 (4-49) U/L Alkaline Phosphatase 105 (38-126) U/L Total Protein 7.8 (6.3-8.2) g/dL Albumin 4.6 (3.5-5.0) g/dL Disposition Clinical Impression: Diabetes mellitus Disposition: HOME SELF-CARE Instructions (If sedation given, give patient instructions): Type 2 Diabetes Management for Adults (ED) Additional Instructions: Return to the emergency department with any new, worsening, or concerning symptoms. Continue to take your medication as prescribed. Bring your glucometer with you to your next doctor's appointment, to have it evaluated for accuracy. Follow up with your primary care provider in 1-2 days. Is patient prescribed a controlled substance at d/c from ED?: No Referrals: Yoshi Boswell DO [Primary Care Provider] - 1-2 days
[2023-10-07 20:19] LABS: ALT 28 U/L (4-49); AST 26 U/L (17-59); African American GFR (CKD) >90 (>60 ml/min/1.73 sqM); Albumin 4.6 g/dL (3.5-5.0); Alkaline Phosphatase 105 U/L (38-126); Anion Gap 14 mmol/L; Blood Urea Nitrogen 18 mg/dL (9-20); Calcium 9.7 mg/dL (8.4-10.2); Carbon Dioxide 24 mmol/L (22-30); Chloride 102 mmol/L (98-107); Glucose 223 mg/dL (74-99); Magnesium 1.7 mg/dL (1.6-2.3); Non-African American GFR(CKD) >90 (>60 ml/min/1.73 sqM); Phosphorus 3.3 mg/dL (2.5-4.5); Potassium 4.5 mmol/L (3.5-5.1); Sodium 140 mmol/L (137-145); Total Bilirubin 0.9 mg/dL (0.2-1.3); Total Protein 7.8 g/dL (6.3-8.2)
[2023-10-07 20:56] VITALS: BP 116/89; PULSE 89; RESP 18
== END 2023-10-07 20:41 | disposition home or self-care (01) ==
LOC: EC 18:24
DX: E11.65 Type 2 diabetes mellitus with hyperglycemia (principal); E78.5 Hyperlipidemia, unspecified; I10 Essential (primary) hypertension; Z79.84 Long term (current) use of oral hypoglycemic drugs; Z79.82 Long term (current) use of aspirin; Z79.899 Other long term (current) drug therapy; Z88.8 Allergy status to other drugs, medicaments and biological substances
CPT/HCPCS: 36415; 80053; 82009; 83735; 84100; 85025; 99283